=== PATIENT | female | born 1990 | race Caucasian/White ===

== ENCOUNTER 2023-07-07 12:52 | Emergency (ER) | payer OTHER, SELFPAY ==
[2023-07-07 12:56] VITALS: BP 99/68; PULSE 93; RESP 18; TEMP 37; O2SAT 98; BMI 26.5
--- NOTE | 2023-07-07 13:01 | ED_ITS ---
HPI - Extremity Injury (Upper) General Chief Complaint: Extremity Injury, Upper Stated Complaint: UPPER EXTREMITY PAIN LEFT HAND Time Seen by Provider: 07/07/23 12:57 Source: patient Mode of arrival: walk-in Limitations: no limitations History of Present Illness HPI narrative: 32-year-old female presents for pain to her left middle finger. A few days ago she accidentally avulsed her fake nail. She was chasing her son and the fingernail got caught on a wall and it got ripped off. It also pulled off the distal tip of the nail. She was worried about an infection. She he has had no drainage. She is right-handed. Related Data Previous Rx's Medication Instructions Recorded cephalexin 500 mg capsule 500 mg PO BID 7 days #14 caps 07/07/23 Allergies Allergy/AdvReac Type Severity Reaction Status Date / Time No Known Drug Allergies Allergy Verified 07/07/23 12:56 Review of Systems ROS Narrative A ten point review of systems is negative except as noted above. PFSH PFSH Social History Smoking status: Never smoker Exam Narrative Exam Narrative: Nurses note and vital signs reviewed and patient is not hypoxic. General: The patient appears well and in no apparent distress. Patient is resting comfortably on cart. Skin: Warm, dry, no pallor noted. There is no rash noted. Head: Normocephalic, atraumatic Ears, Nose, Mouth, and Throat: oral mucosa is moist. Nares patent. Cardiovascular: Regular Rate and Rhythm Respiratory: Patient is in no distress, no accessory muscle use Back: non-tender GI: soft and nontender Musculoskeletal: she does not have a false nail on her left 3rd finger, the other fingers do. Distal aspect of her [place] nail is also avulsed exposing some nailbed. There is no bleeding or erythema or drainage. Neurological: A&O, normal speech Psychiatric: Cooperative Constitutional Vital Signs, click to edit/add: Last Vital Signs Temp 98.6 F 07/07/23 12:56 Pulse 93 H 07/07/23 12:56 Resp 18 07/07/23 12:56 BP 99/68 07/07/23 12:56 Pulse Ox 98 07/07/23 12:56 Course Vital Signs Vital signs: Vital Signs Temperature 98.6 F 07/07/23 12:56 Pulse Rate 93 H 07/07/23 12:56 Respiratory Rate 18 07/07/23 12:56 Blood Pressure 99/68 07/07/23 12:56 Pulse Oximetry 98 07/07/23 12:56 Temperature 98.6 F 07/07/23 12:56 Pulse Rate 93 H 07/07/23 12:56 Respiratory Rate 18 07/07/23 12:56 Blood Pressure 99/68 07/07/23 12:56 Pulse Oximetry 98 07/07/23 12:56 MDM - Extremity Injury (Upper) MDM Narrative Medical decision making narrative: she's placed on a short course of Keflex. Tetanus is already up-to-date. Treatment diagnosis and follow-up were discussed with the patient. Differential Diagnosis Differential diagnosis: Likely other (nail avulsion, infection) Discharge Plan Discharge Chief Complaint: Extremity Injury, Upper Clinical Impression: Avulsion of nail Patient Disposition: Home, Self-Care Time of Disposition Decision: 13:00 Condition: Good Mode of Transportation: Private Vehicle Prescriptions / Home Meds: New cephalexin 500 mg capsule 500 mg PO BID 7 Days Qty: 14 0RF Instructions: Acute Wounds (ED) Stand Alone Forms: Portal Instructions Referrals: WILLIAM VIGIL [Primary Care Provider] - 1 week
== END 2023-07-07 13:08 | disposition home or self-care (01) ==
PROVIDERS: Emergency Provider Emergency Medicine; PCP Family Medicine
DX: S61.303A Unspecified open wound of left middle finger with damage to nail, initial encounter (principal); W22.01XA Walked into wall, initial encounter
CPT/HCPCS: 99283

== ENCOUNTER 2023-08-14 19:15 | Emergency (ER) | payer OTHER, SELFPAY ==
--- OUTSIDE RECORDS SUMMARY | 2023-08-14 19:21 | XMS_ITS | CCD ---
Author Name Unknown Address [address] [place] [address] Organization [facility] Care Team Providers Care Cutting Machine Operator Helper Name Role Phone Unavailable Primary Care Provider BORA Kothari Referring Unavailable Read, Jamil Attending Unavailable Read, Jamil Admitting Unavailable HOUSE, WILLIAM Akhtar Primary Care Unavailable SHARON, DR WILLIAM Loyditting Unavailable SHARON, DR THOMAS Attending Unavailable SHARON, DR THOMAS Primary Care Unavailable HOUSE, DR THOMAS Primary Care Unavailable PAY ., DR YOUNG Admitting Unavailable PAY ., DR YOUNG Attending Unavailable [place], DR PHU Capellan Consulting Unavailable PAY ., DR YOUNG Consulting Unavailable SHARON, DR THOMAS Primary Care Unavailable ALMA ., KEVIN Admitting Unavailable ALMA ., KEVIN Attending Unavailable ALMA ., KEVIN Consulting Unavailable HOUSE, DR THOMAS Primary Care Unavailable DIAB ., TRINIDAD Admitting Unavailable DIAB ., TRINIDAD Attending Unavailable DIAB ., TRINIDAD Consulting Unavailable HOUSE, DR THOMAS Admitting Unavailable SHARON, DR THOMAS Attending Unavailable SHARON, DR THOMAS Primary Care Unavailable SHARON, DR THOMAS Consulting Unavailable PETITTCINDY Gomez Attending Unavailable Medications Current Medications Medication Drug Class(es) Dates Sig (Normalized) Sig (Original) permethrin 50 mg/ml topical cream (1 source) Pyrethroid Start: 03-12-2013 permethrin (ELIMITE) 5 % cream Apply topically as directed Apply cream to body from neck down, include soles of feet. Leave 8-12 hours and then shower off. May repeat in 10-14 days if needed. 1 Tube 1 03/12/2013 Active predniSONE 20 mg oral tablet (1 source) Start: 03-12-2013 predniSONE (DELTASONE) 20 MG tablet Take one tablet three times daily with food for five days 15 tablet 0 03/12/2013 Active Problems Active Problems Problem Classification Problem Date Documented Da te Episodic/Chronic Acute and chronic tonsillitis (1 source) Acute tonsillitis, unspecified; Translations: [ACUTE TONSILLITIS UNSPECIFIED] Onset: 11-21-2022 Episodic Other upper respiratory infections (6 sources) Acute laryngitis; Translations: [Acute pharyngitis, unspecified] Onset: 05-02-2022 Episodic Screening and history of mental health and substance abuse codes (1 source) Personal history of nicotine dependence; Translations: [PERSONAL HISTORY OF NICOTINE DEPEND] Onset: 10-18-2022 Episodic Unclassified (2 sources) new hire physical; Translations: [new hire physical] Onset: 09-05-2022 Unclassified (3 sources) COUGH, UNSPECIFIED; Translations: [COUGH, UNSPECIFIED] Onset: 05-02-2022 Unclassified (1 source) PERSONAL HISTORY OF COVID-19; Translations: [PERSONAL HISTORY OF COVID-19] Onset: 05-02-2022 Past or Other Problems Problem Classification Problem Date Documented Da te Episodic/Chronic Unclassified (1 source) COUGH, UNSPECIFIED; Translations: [COUGH, UNSPECIFIED] Onset: 11-20-2022 Results Test Name Value Interpretation Reference Range Facil ity GROUP A STREP CULTUREon 10-24 S. pyogenes Ag Ql (Unsp spec) Culture Observations: NEGATIVE FOR GROUP A STREPTOCOCCUS. Normal [facility] Comment on above: Performed By: #### G RASTCX, SSCRN #### [facility] [address] [address] [address] Luca Stanton STREPT SCREENon 11-20-2022 STREP SCREEN A Negative Normal NEGATIVE [facility] Comment on above: Performed By: #### G RASTCX, SSCRN #### [facility] [address] [address] [address] Luca Stanton GROUP A STREP CULTUREon 09-26 S. pyogenes Ag Ql (Unsp spec) Culture Observations: NEGATIVE FOR GROUP A STREPTOCOCCUS. Normal [facility] Comment on above: Performed By: #### S SCRN, GRASTCX #### [facility] [address] [address] [address] Luca Stanton STREPT SCREENon 10-16-2022 STREP SCREEN A Negative Normal NEGATIVE [facility] Comment on above: Performed By: #### S SCRN, GRASTCX #### [facility] [address] [place], [place] [address] Dr. Luca Stanton Consent Formson 09-24-2022 Consent Forms [id number] 0OTGTIFF [facility] Consent Forms [id number]. 00OTGTIFF [facility] T-Spoton 09-08-2022 T-Spot. TB Test Normal [facility] Comment on above: Result Comment: [facility] [employer] [address] [place] [address] (NOTE) T-SPOT.TB Test Results --------- T-SPOT TB Negative Normal Value: Negative A negative test result does not exclude the possibility of exposure to or infection with Mycobacterium tuberculosis (M tuberculosis). Patients with recent exposure to TB infected individuals exhibiting a negative T-SPOT.TB result should be considered for retesting within 6 weeks or if other relevant clinical symptoms indicate. Results from T-SPOT.TB testing must be used in conjunction with each individual's epidemiological history, current medical status, and results of other diagnostic evaluations. The T-SPOT.TB test is qualitative and results are reported as positive, borderline or negative, given that the test controls perform as expected. In line with the Centers for Disease Control and Prevention's 2010 recommendation to report quantitative measurements alongside the qualitative result, the laboratory provides spot counts for information purposes only. The T-SPOT.TB test should be interpreted as a quantitative test. Panel A Spot Count (Corrected for Negative Control) 0 Panel B Spot Count (Corrected for Negative Control) 3 Negative Control Passed Positive Control Passed Performed By: #### V ZI, TSPOT #### [facility] [address] [place] [id number] Marketing Operations Coordinator: Christiano Ospina MD VZ Immunityon 09-06-2022 VZ Immunity 2.21 Normal >1.09 [facility] Comment on above: Result Comment: Interpretation: IMMUNE Reference Range: <0.91 Not Immune 0.91-1.09 Equivocal >1.09 Immune Performed By: #### V ZI, TSPOT #### [facility] [address] [place], [place] [id number] Marketing Operations Coordinator: Christiano Ospina MD ED Clinical Summaryon 2022 ED Clinical Summary [facility] ? Urgent Care [address] [place] [id number] Clinical Summary PERSON INFORMATION Name: LUI CARCAMO Age: 31 Years Sex: FEMALE : 1990 MRN: Acct#: Visit Reason: Medical screening exam; OTTERBEIN PHYSICAL Arrival: 09/02/2022 11:14:45 Discharge: 09/02/2022 12:31:00 LOS: 000 01:17 Check In: 09/02/2022 11:14:45 Checkout: 09/02/2022 12:31:00 Address: [address] [place] [address] PCP: WILLIAM VIGIL PROVIDER INFORMATION Provider Role Assigned Unassigned Cindy Leon TIRE MOUNTER Nurse 09/02/2022 11:21:29 Jamil Read PA-C ED PA 09/02/2022 11:28:39 VITALS INFORMATION Vital Sign Triage Latest Temperature Tympanic Temperature Temporal Artery Pulse Rate O2 Sat 98 % 98 % Respiratory Rate Blood Pressure /68 mmHg /68 mmHg MEDICAL INFORMATION Medications Given: Allergy Information: No known allergies PHYSICIAN DOCUMENTATION DISCHARGE INFORMATION: Discharge Disposition: Home Discharge Location: Home PATIENT EDUCATION INFORMATION Instructions: Follow-Up: DIAGNOSIS: 1:Encounter for fitness for duty examination Patient Understands: Comment: Normal [facility] ED Patient Summaryon 023 ED Patient Summary [facility] ? Urgent Care [address] [place] [id number] PATIENT DISCHARGE INSTRUCTIONS Patient Information Name: LUI CARCAMO Age: 31 Years Date of : 1990 Reason For Visit: Medical screening exam; OTTERBEIN PHYSICAL Arrival Time: 09/02/2022 11:14:45 Primary Care Physician: WILLIAM VIGIL Attending Physician: Jamil Read PA-C Comment: Patient Education Medication Information: The exam and treatment you received today in the [facility] Emergency Department were for an urgent problem and are not intended as complete care. It is important for you to follow up with a doctor, nurse practitioner, or physician?s medical services assistant for ongoing care. If your symptoms become worse or you do not improve as expected and you are unable to reach your usual health care provider, you should return to the Emergency Department, we are available 24 hours a day. For those patients who have received Radiology results, the interpretation of your X-ray as given to you by our Emergency Department physician is only a preliminary report. The Radiologist will review your films and if there is a change in the diagnosis you will be notified by phone. Please make sure you have provided a working phone number so we can reach you if necessary. In the event that you had a lab culture while you were a patient in the Emergency Department, you will be notified by phone if there is a need to change your antibiotic. Please make sure you have provided a working phone number so we can reach you if necessary. [facility] Emergency Department has provided you with a complete list of medications post discharge. Please inform your manager primary care/provider of your visit and for further instruction on these medications. Any specific questions regarding your chronic medications and dosages should be discussed with your primary care physician(s) and/or pharmacist. Medications to Continue That Have Not Changed Other Medications benzoyl peroxide-clindamycin topical (benzoyl peroxide-clindamycin 5%-1% topical gel) APPLY TOPICALLY TO THE FACE ONCE A DAY FOR 30 DAYS.. spironolactone (spironolactone 50 mg oral tablet) 1 tab(s) Oral every day. TAKE 3 TABLETS BY MOUTH ONCE DAILY. sulfacetamide sodium topical (sulfacetamide sodium 10% topical lotion) APPLY SMALL AMOUNT TOPICALLY TO FACE IN THE MORNING FOR 30 DAYS.. Visit Information Visit Diagnosis: Diagnoses This Visit Encounter for fitness for duty examination (Z02.89) Medical screening exam ([id number]) If you received any narcotics, sedation, or any other medication that causes drowsiness for the next 24 hours, unless otherwise directed: ? Do not drive a car. ? Do not operate machinery such as power tools, lawn mowers, drills, sewing machines, or stoves ? Avoid alcoholic beverages and drugs for allergies, nerves, or sleep ? Do not make important personal or business decisions or sign any legal documents Reason for Visit: Gale rich physical Allergies: Substance Reaction Symptoms Type Comments No known allergies Drug Vital Signs: Vitals and Measurements this Visit (last charted value for your 09/02/2022 visit) Vital Signs This Visit Peripheral Pulse Rate: 85 bpm Respiratory Rate: 16 br/min Systolic Blood Pressure: 98 mmHg Diastolic Blood Pressure: 68 mmHg SpO2: 98 % Oxygen Therapy: Room air Blood Pressure Method: Manual Measurements This Visit Height/Length Measured: 161.92 cm Weight Measured: 69.13 kg Body Mass Index: 26.37 kg/m2 BSA Measured: 1.76 m2 Problems List: Problem Onset Comments None Major Tests and Procedures: The following procedures and tests were performed during your ED visit. Laboratory Radiology Cardiology Viruses or Bacteria What?s got you sick? Antibiotics only treat bacterial infections. Viral illnesses cannot be treated with antibiotics. When an antibiotic is not prescribed, ask your healthcare professional for tips on how to relieve symptoms and feel better. Usual Cause Illness Viruses Bacteria Antibiotic Needed Cold/Runny Nose NO Bronchitis/Chest Cold (in otherwise healthy children and adults) NO Whooping Cough Yes Flu NO Strep Throat Yes Sore Throat (except strep) NO Fluid in the middle ear (otitis media with effusion) NO Urinary Tract Infection Yes Antibiotics Aren?t Always the Answer www.cdc.gov/getsmart GET SMART Know When Antibiotics Work U.S. Department of Health and Human Services Centers for Disease Control and Prevention April [address] [facility] [place] 023 Urgent Care Record [facility] ? Urgent Care [address] [place] [address] PATIENT DISCHARGE INSTRUCTIONS Patient Information Name: LUI CARCAMO Age: 31 Years Date of : 1990 Reason For Visit: Medical screening exam; GALE PHYSICAL Arrival Time: 09/02/2022 11:14:45 Primary Care Physician: WILLIAM VIGIL Attending Physician: Jamil Read PA-C Comment: Visit Diagnosis: Diagnoses This Visit Encounter for fitness for duty examination (Z02.89) Medical screening exam ([id number]) If you received any narcotics, sedation, or any other medication that causes drowsiness for the next 24 hours, unless otherwise directed: ? Do not drive a car. ? Do not operate machinery such as power tools, lawn mowers, drills, sewing machines, or stoves ? Avoid alcoholic beverages and drugs for allergies, nerves, or sleep ? Do not make important personal or business decisions or sign any legal documents Medication Information: The exam and treatment you received today in the [facility] were for an urgent problem and are not intended as complete care. It is important for you to follow up with a doctor, nurse practitioner, or physician?s medical services assistant for ongoing care. If your symptoms become worse or you do not improve as expected and you are unable to reach your usual health care provider, you should return to the Emergency Department, we are available 24 hours a day. For those patients who have received Radiology results, the interpretation of your X-ray as given to you by our Urgent Care physician is only a preliminary report. The Radiologist will review your films and if there is a change in the diagnosis you will be notified by phone. Please make sure you have provided a working phone number so we can reach you if necessary. In the event that you had a lab culture while you were a patient in the Urgent Care, you will be notified by phone if there is a need to change your antibiotic. Please make sure you have provided a working phone number so we can reach you if necessary. [facility] Care has provided you with a complete list of medications post discharge. Please inform your manager primary care/provider of your visit and for further instruction on these medications. Any specific questions regarding your chronic medications and dosages should be discussed with your primary care physician(s) and/or pharmacist. Medications to Continue That Have Not Changed Other Medications benzoyl peroxide-clindamycin topical (benzoyl peroxide-clindamycin 5%-1% topical gel) APPLY TOPICALLY TO THE FACE ONCE A DAY FOR 30 DAYS.. spironolactone (spironolactone 50 mg oral tablet) 1 tab(s) Oral every day. TAKE 3 TABLETS BY MOUTH ONCE DAILY. sulfacetamide sodium topical (sulfacetamide sodium 10% topical lotion) APPLY SMALL AMOUNT TOPICALLY TO FACE IN THE MORNING FOR 30 DAYS.. Visit Information Allergies: Substance Reaction Symptoms Type Comments No known allergies Drug Vital Signs: Vitals and Measurements this Visit (last charted value for your 09/02/2022 visit) Vital Signs This Visit Peripheral Pulse Rate: 85 bpm Respiratory Rate: 16 br/min Systolic Blood Pressure: 98 mmHg Diastolic Blood Pressure: 68 mmHg SpO2: 98 % Oxygen Therapy: Room air Blood Pressure Method: Manual Measurements This Visit Height/Length Measured: 161.92 cm Weight Measured: 69.13 kg Body Mass Index: 26.37 kg/m2 BSA Measured: 1.76 m2 Problems List: Problem Onset Comments None Patient Education Viruses or Bacteria What?s got you sick? Antibiotics only treat bacterial infections. Viral illnesses cannot be treated with antibiotics. When an antibiotic is not prescribed, ask your healthcare professional for tips on how to relieve symptoms and feel better. Usual Cause Illness Viruses Bacteria Antibiotic Needed Cold/Runny Nose NO Bronchitis/Chest Cold (in otherwise healthy children and adults) NO Whooping Cough Yes Flu NO Strep Throat Yes Sore Throat (except strep) NO Fluid in the middle ear (otitis media with effusion) NO Urinary Tract Infection Yes Antibiotics Aren?t Always the Answer www.cdc.gov/getsmart GET SMART Know When Antibiotics Work U.S. Department of Health and Human Services Centers for Disease Control and Prevention April 2014 [facility] XR CHEST 2 Von 04-30-2022 XR CHEST 2 V EXAMINATION: XR CHES T 2 V HISTORY: SHORTNESS OF BREATH COMPARISON: No relevant comparison available. TECHNIQUE: FINDINGS: LUNGS: No significant pulmonary parenchymal abnormalities. VASCULATURE: No increased pulmonary vasculature. PLEURA: No pneumothorax, effusion, or pleural thickening. CARDIAC: No cardiomegaly or cardiac silhouette abnormality. MEDIASTINUM: No visible mass or adenopathy. BONES: No fracture or visible bone lesion. OTHER: Negative. IMPRESSION: No acute disease. Electronically authenticated by: PHU LOYD Date: 2022-04-30 10:41 Normal [facility] CBC AUTO DIFFon 12-04-2021 BASO # 0.0 103/ul Normal 0.0-0.1 [facility] Comment on above: Performed By: #### C BC #### [facility] [address] [place] [address] Dr. Luca Stanton Basophils/100 WBC (Bld) 0.4 % Normal 0.2-2.0 [facility] Comment on above: Performed By: #### C BC #### [facility] [address] [place] [address] Dr. Luca Stanton EO # 0.1 103/ul Normal 0.0-0.7 [facility] Comment on above: Performed By: #### C BC #### [facility] [address] [place] [address] Dr. Luca Stanton Eosinophils/100 WBC (Bld) 1.7 % Normal 0.9-7.0 [facility] Comment on above: Performed By: #### C BC #### [facility] [address] [place] [address] Dr. Luca Stanton Erythrocyte distribution width (RBC) [Ratio] 13.1 % Normal 11.0-15.0 [facility] Comment on above: Performed By: #### C BC #### [facility] [address] [place] [address] Dr. Luca Stanton Hematocrit (Bld) [Volume fraction] 38.5 % Normal 36.0-48.0 [facility] Comment on above: Performed By: #### C BC #### [facility] [address] [place] [address] Dr. Luca Stanton Hemoglobin (Bld) [Mass/Vol] 12.5 g/dL Normal 12.0-16.0 [facility] Comment on above: Performed By: #### C BC #### [facility] [address] [place] [address] Dr. Luca Stanton IG # 0.02 10e3/ul Normal 0.00-0.03 [facility] Comment on above: Performed By: #### C BC #### [facility] [address] [place] [address] Dr. Luca Stanton IG % 0.3 % Normal 0.0-0.5 [facility] Comment on above: Performed By: #### C BC #### [facility] [address] [place] [address] Dr. Luca Stanton LYMPH # 2.4 103/ul Normal 1.2-3.8 [facility] Comment on above: Performed By: #### C BC #### [facility] [address] [place] [address] Dr. Luca Stanton Lymphocytes/100 WBC (Bld) 31.3 % Normal 20.5-60.0 [facility] Comment on above: Performed By: #### C BC #### [facility] [address] [place] [address] Dr. Luca Stanton MANUAL DIFF REQ NO Normal [facility] Comment on above: Performed By: #### C BC #### [facility] [address] [place] [address] Dr. Luca Stanton MCH (RBC) [Entitic mass] 28.6 pg Normal 26.7-34.0 [facility] Comment on above: Performed By: #### C BC #### [facility] [address] [place] [address] Dr. Luca Stanton MCHC (RBC) [Mass/Vol] 32.5 g/dL Normal 29.9-35.2 [facility] Comment on above: Performed By: #### C BC #### [facility] [address] [place] [address] Dr. Luca Stanton MCV (RBC) [Entitic vol] 88.1 fL Normal 81.0-99.0 [facility] Comment on above: Performed By: #### C BC #### [facility] [address] [place] [address] Dr. Luca Stanton MONO # 0.4 103/ul Normal 0.3-0.8 [facility] Comment on above: Performed By: #### C BC #### [facility] [address] [place] [address] Dr. Luca Stanton Monocytes/100 WBC (Bld) 5.7 % Normal 1.7-12.0 [facility] Comment on above: Performed By: #### C BC #### [facility] [address] [place] [address] Dr. Luca Stanton NEUT # 4.7 103/ul Normal 1.4-6.5 [facility] Comment on above: Performed By: #### C BC #### [facility] [address] [place] [address] Dr. Luca Stanton Neutrophils/100 WBC (Bld) 60.6 % Normal 43.0-75.0 [facility] Comment on above: Performed By: #### C BC #### [facility] [address] [place] [address] Dr. Luca Stanton Platelet mean volume (Bld) [Entitic vol] 11.0 fL Normal 9.5-13.5 [facility] Comment on above: Performed By: #### C BC #### [facility] [address] [place] [address] Dr. Luca Stanton PLT 248 103/ul Normal 150-450 [facility] Comment on above: Performed By: #### C BC #### [facility] [address] [place] [address] Dr. Luca Stanton RBC 4.37 106/ul Normal 4.20-5.40 [facility] Comment on above: Performed By: #### C BC #### [facility] [address] [place] [address] Dr. Luca Stanton WBC 7.7 103/ul Normal 4.0-11.0 [facility] Comment on above: Performed By: #### C BC #### [facility] [address] [place] [address] Dr. Luca Stanton PROF 14(COMP METB)on 022 Albumin [Mass/Vol] 4.0 g/dL Normal 3.4-5.0 [facility] Comment on above: Performed By: #### T SH, CMP, T4 #### [facility] [address] [place] [address] Dr. Luca Stanton Albumin/Globulin [Mass ratio] 1.3 {ratio} Normal [facility] Comment on above: Performed By: #### T SH, CMP, T4 #### [facility] [address] [place] [address] Dr. Luca Stanton ALP [Catalytic activity/Vol] 57 U/L Normal 46-116 [facility] Comment on above: Performed By: #### T SH, CMP, T4 #### [facility] [address] [place] [address] Dr. Luca Stanton ALT [Catalytic activity/Vol] 17 U/L Normal 14-59 [facility] Comment on above: Performed By: #### T FARTUN CMP, T4 #### [facility] [address] [place] [address] Dr. Luca Stanton Anion gap [Moles/Vol] 11.8 mmol/L Normal [facility] Comment on above: Performed By: #### T FARTUN CMP, T4 #### [facility] [address] [place] [address] Dr. Luca Stanton AST [Catalytic activity/Vol] 10 U/L Critically low 15-37 [facility] Comment on above: Performed By: #### T FARTUN CMP, T4 #### [facility] [address] [place] [address] Dr. Luca Stanton Bilirubin [Mass/Vol] 0.7 mg/dL Normal 0.2-1.3 [facility] Comment on above: Performed By: #### T FARTUN CMP, T4 #### [facility] [address] [place] [address] Dr. Luca Stanton Calcium [Mass/Vol] 8.5 mg/dL Normal 8.5-10.1 [facility] Comment on above: Performed By: #### T FARTUN CMP, T4 #### [facility] [address] [place] [address] Dr. Luca Stanton Chloride [Moles/Vol] 104 mmol/L Normal 98-107 [facility] Comment on above: Performed By: #### T FARTUN CMP, T4 #### [facility] [address] [place] [address] Dr. Luca Stanton CO2 [Moles/Vol] 29.1 mmol/L Normal 22.0-30.0 [facility] Comment on above: Performed By: #### T FARTUN CMP, T4 #### [facility] [address] [place] [address] Dr. Luca Stanton Creatinine [Mass/Vol] 0.77 mg/dL Normal 0.52-1.04 [facility] Comment on above: Performed By: #### T FARTUN CMP, T4 #### [facility] [address] [address] [address] Luca Stanton EGFR-AF [place]ER >60 Normal >=60 [facility] Comment on above: Performed By: #### T FARTUN CMP, T4 #### [facility] [address] [address] [address] Luca Stanton EGFR-NON AF [place] >60 Normal >=60 [facility] Comment on above: Performed By: #### T FARTUN CMP, T4 #### [facility] [address] [address] [address] Luca Stanton Globulin (S) [Mass/Vol] 3.1 g/dL Normal [facility] Comment on above: Performed By: #### T FARTUN CMP, T4 #### [facility] [address] [address] [address] Luca Stanton Glucose [Mass/Vol] 96 mg/dL Normal 74-106 [facility] Comment on above: Performed By: #### T FARTUN CMP, T4 #### [facility] [address] [address] [address] Luca Stanton Potassium [Moles/Vol] 3.9 mmol/L Normal 3.4-5.0 [facility] Comment on above: Performed By: #### T FARTUN CMP, T4 #### [facility] [address] [address] [address] Luca Stanton Protein [Mass/Vol] 7.1 g/dL Normal 6.1-8.2 [facility] Comment on above: Performed By: #### T FARTUN CMP, T4 #### [facility] [address] [address] [address] Luca Stanton Sodium [Moles/Vol] 141 mmol/L Normal 137-145 [facility] Comment on above: Performed By: #### T FARTUN CMP, T4 #### [facility] [address] [address] [address] Luca Stanton Urea nitrogen [Mass/Vol] 9.0 mg/dL Normal 7.0-18.0 [facility] Comment on above: Performed By: #### T FARTUN, CMP, T4 #### [facility] [address] [address] [address] Luca Stanton Urea nitrogen/Creatinine [Mass ratio] 11.7 mg/mg Normal [facility] Comment on above: Performed By: #### T SH, CMP, T4 #### [facility] [address] [address] [address] Luca Stanton T4on 12-04-2021 T4 [Mass/Vol] 6.60 ug/dL Normal 5.53-11.00 [facility] Comment on above: Performed By: #### T SH, CMP, T4 #### [facility] [address] [address] [address] Luca Stanton TSHon 12-04-2021 TSH 1.653 uIU/mL Normal 0.470-4.680 [facility] Comment on above: Performed By: #### T SH, CMP, T4 #### [facility] [address] [address] [address] Luca Stanton TSH RANGE SEE BELOW Normal [facility] Comment on above: Result Comment: <0.3 4 UIU/ml HYPERTHYROID 0.34-5.60 UIU/ml EUTHYROID >5.60 UIU/ml HYPOTHYROID Performed By: #### T SH, CMP, T4 #### [facility] [address] [address] [address] Luca Stanton Encounters Encounter Date Encounter Type Care Provider Facility Start: 07-24-2023 End: 07-24-2023 ambulatory CINDY FULLER Not Available Start: 11-20-2022 End: 11-20-[address] WILLIAM VIGIL Facility:[facility] Start: 10-16-2022 End: 10-16-[address] WILLIAM VIGIL Facility:[facility] Start: 09-05-2022 End: 09-06-2022 ambulatory BORA LUTHER [facility] Start: 09-05-2022 End: 09-05-2022 Subsequent hospital visit by physician [facility] Start: 09-02-2022 End: 09-02-2022 ambulatory Jamil Fairchildtiz Facility:[facility] Start: 04-30-2022 End: 04-30-[address] WILLIAM VIGIL Facility:[facility] Start: 12-18-[address] WILLIAM VIGIL Facili ty:[facility] Start: 12-07-2021 Encounter for genera l adult medical examination without abnormal findings DR WILLIAM VIGIL [facility] Start: 12-04-2021 End: 12-05-[address] WILLIAM VIGIL Facility:[facility] Start: 12-04-2021 End: 12-05-2021 Encounter for general adult medical examination without abnormal findings DR WILLIAM VIGIL Facility:[facility] Plan of Treatment Date Care Activity Detail Author Start: 03-25-2022 Influenza vaccination Flu vaccine (# 1) [facility] [employer] Start: 11-18-2010 DTaP/Tdap/Td vaccine (1 - Tdap) DTaP/Tdap/Td vaccine (1 - Tdap) [facility] Start: 05-21-1992 COVID-19 Vaccine (#1) COVID-19 Vacci ne (#1) [facility] End: 09-05-2022 Tb antigen response gamma interferon t-cell susp [employer]: Comment on above: Once for 1 Occurrenc es starting 09/05/2022 until 09/05/2022 End: 09-05-2022 Varicella Zoster Antibody, IgG [employer]: Comment on above: Once for 1 Occurrenc es starting 09/05/2022 until 09/05/2022 Payers Date Payer Category Payer Unknown [id number] 1991 Unknown [id number] .[id number] 1991 Unknown [id number] 1991 Unknown [id number] .[id number] 1991 Unknown [id number] .[id number] 1991 Unknown [id number] 1959 Unknown [id number] Social History Date Type Detail Facility Start: 03-12-2013 [facility] [employer]: Start: 03-12-2013 Alcohol intake Current drinke r of alcohol (finding) [facility] [employer]: Start: 03-12-2013 Alcohol Comment I drink occasional ly. [facility] [employer]: Start: 1990 Sex Assigned At Not on file B ON [employer]: History and physical note 09-03-2022 Note Date & Type Note Facility 09-03-2022 Note [id number] F [facility] Clinical Note 09-02-2022 Note Date & Type Note Facility 09-02-2022 Note Patient Education Materials Foll ows: [facility] Summary Purpose Family History No Family History Records FoundNo Family History Records FoundNo Family History Records FoundNo Family History Records Found Advance Directives No Advanced Directives Records FoundNo Advanced Directives Records FoundNo Advanced Directives Records FoundNo Advanced Directives Records Found Additional Source Comments INFORMATION SOURCE (unrecogn ized section and content) DATE CREATED AUTHOR 09/08/2022 [facility] DATE CREATED AUTHOR AUTHOR'S ORGANIZ ATION 09/24/2022 [facility] DATE CREATED AUTHOR AUTHOR'S ORGANIZ ATION 11/24/[address] [facility] DATE CREATED AUTHOR AUTHOR'S ORGANIZ ATION 07/26/2023 [facility] [employer] [facility] FOR RECORDS PERTAINING TO PATIENTS WHO ARE OR HAVE BEEN ENROLLED IN A CHEMICAL DEPENDENCY/SUBSTANCEABUSE PROGRAM, SOME INFORMATION MAY BE OMITTED. This clinical summary was aggregated from multiple sources. Caution should be exercised in using it in the provision of clinical care. This summary normalizes information from multiple sources, and as a consequence, information in this document may materially change the coding, format and clinical context of patient data. In addition, data may be omitted in some cases. CLINICAL DECISIONS SHOULD BE BASED ON THE PRIMARY CLINICAL RECORDS. [facility] [employer] [facility]. provides no warranty or guarantee of the accuracy or completeness of information in this document.
[2023-08-14 19:37] VITALS: BP 102/76; PULSE 88; RESP 18; TEMP 36.8; O2SAT 97; BMI 28.3
--- NOTE | 2023-08-14 19:51 | ED.URI1 ---
HPI - URI/Sore Throat General Chief Complaint: Upper Respiratory Infection Stated Complaint: URTI Time Seen by Provider: 08/14/23 19:15 Source: patient Limitations: no limitations History of Present Illness HPI Narrative: Patient with 3-4 days of nasal congestion, runny nose, sore throat and sinus fullness. Daughter had similar symptoms earlier. No fever or chills. No vomiting or diarrhea. Minimal dry cough that is no worse at night. No chest pain or shortness of breath. Related Data Home Medications Medication Instructions Recorded Confirmed clindamycin 1 %-benzoyl peroxide 5 1 applic topical DAILY 08/14/23 08/14/23 % topical gel spironolactone 50 mg tablet 50 mg PO DAILY 08/14/23 08/14/23 Previous Rx's Medication Instructions Recorded cephalexin 500 mg capsule 500 mg PO BID 7 days #14 caps 07/07/23 cetirizine 5 mg-pseudoephedrine ER 1 tab PO Q12H PRN sinus symptoms 08/14/23 120 mg tablet,extended #14 tabs release,12hr (Zyrtec-D) Allergies Allergy/AdvReac Type Severity Reaction Status Date / Time No Known Drug Allergies Allergy Verified 08/14/23 19:36 PFSH PFSH Social History Smoking status: Former smoker Exam Narrative Exam Narrative: Nurses notes and vital signs reviewed and patient is not hypoxic. afebrile General: Well-appearing and in no apparent distress. Skin: Warm, dry, no pallor noted. No rash. Head: Normocephalic, atraumatic. No frontal sinus tenderness. Mild right maxillary sinus tenderness Neck: Supple, non-tender. No cervical lymphadenopathy Eye: Pupils are equal, round and EOMI. No scleral icterus. Ears, Nose, Mouth, and Throat: TM are clear, mild posterior oropharynx erythema without palatal petechiae or exudate. No pharyngeal or tonsillar swelling. Mild nasal mucosal hypertrophy, uvula is mid-line. Oral mucosa is moist Cardiovascular: Regular Rate and Rhythm without murmur, gallop or rub. Respiratory: No accessory muscle use or respiratory distress. Lungs are clear to auscultation, no wheezing, rales or rhonchi Neurological: A&O x4. No cranial nerve dysfunction observed. No truncal ataxia. Moves all extremities. Sensation intact. Psychiatric: Cooperative and interactive. Normal mood and affect. Constitutional Vital Signs, click to edit/add: Last Vital Signs Temp 98.3 F 08/14/23 19:37 Pulse 88 08/14/23 19:37 Resp 18 08/14/23 19:37 BP 102/76 08/14/23 19:37 Pulse Ox 97 08/14/23 19:37 O2 Del Method Room Air 08/14/23 19:37 Course Vital Signs Vital signs: Vital Signs Temperature 98.3 F 08/14/23 19:37 Pulse Rate 88 08/14/23 19:37 Respiratory Rate 18 08/14/23 19:37 Blood Pressure 102/76 08/14/23 19:37 Pulse Oximetry 97 08/14/23 19:37 Oxygen Delivery Method Room Air 08/14/23 19:37 Temperature 98.3 F 08/14/23 19:37 Pulse Rate 88 08/14/23 19:37 Respiratory Rate 18 08/14/23 19:37 Blood Pressure 102/76 08/14/23 19:37 Pulse Oximetry 97 08/14/23 19:37 Oxygen Delivery Method Room Air 08/14/23 19:37 MDM - URI/Sore Throat MDM Narrative Medical decision making narrative: Patient without findings consistent with acute strep pharyngitis, otitis media or other bacterial etiology of her symptoms. We discussed her diagnosis and she was discharged home with a prescription sent electronically for Zyrtec-D to be taken every 12 hours as needed for symptoms. Patient advised to rest, stay at home, practice social distancing, take Motrin and Tylenol for pain and fever if not allergic, stay well hydrated with Gatorade or similar drinks if vomiting or eat as tolerated if not and take any meds as prescribed. Reviewed reasons to return including rapid increase in respiratory rate, shortness of breath, confusion, inability to keep down sips of swallowed liquids for more than 24 hours. Asked patient to encourage any ill contacts to stay home and practice similar advice. Discharge Plan Discharge Chief Complaint: Upper Respiratory Infection Clinical Impression: Upper respiratory infection Time of Disposition Decision: 19:53 Prescriptions / Home Meds: New cetirizine-pseudoephedrine [Zyrtec-D] 5-120 mg tablet extended release 12 hr 1 tab PO Q12H PRN (Reason: sinus symptoms) Qty: 14 0RF No Action cephalexin 500 mg capsule 500 mg PO BID 7 Days Qty: 14 0RF clindamycin-benzoyl peroxide 1-5 % gel 1 applic TOPICAL DAILY spironolactone 50 mg tablet 50 mg PO DAILY Instructions: Upper Respiratory Infection (ED) Stand Alone Forms: Portal Instructions Referrals: WILLIAM VIGIL [Primary Care Provider] - 1 week
== END 2023-08-14 19:58 | disposition home or self-care (01) ==
PROVIDERS: Emergency Provider Emergency Medicine; PCP Family Medicine
DX: J06.9 Acute upper respiratory infection, unspecified (principal); Z79.899 Other long term (current) drug therapy; Z87.891 Personal history of nicotine dependence
CPT/HCPCS: 99283

== ENCOUNTER 2023-08-22 08:48 | Emergency (ER) | payer OTHER, SELFPAY ==
[2023-08-22 08:52] VITALS: BP 89/61; PULSE 82; RESP 18; TEMP 36.9; O2SAT 96; BMI 26.5
--- OUTSIDE RECORDS SUMMARY | 2023-08-22 08:56 | XMS_ITS | CCD ---
Author Name Unknown Address [address] [place] [address] Organization [facility] Care Team Providers Care Yard Coupler Name Role Phone Unavailable Primary Care Provider BORA Kothari Referring Unavailable Read, Jamil Attending Unavailable Read, Jamil Admitting Unavailable HOUSE, WILLIAM Akhtar Primary Care Unavailable MORELAND, DR THOMAS Admitting Unavailable MORELAND, DR THOMAS Attending Unavailable MORELAND, DR THOMAS Primary Care Unavailable HOUSE, DR THOMAS Primary Care Unavailable PAY ., DR YOUNG Admitting Unavailable PAY ., DR YOUNG Attending Unavailable RALSTON, DR PHU Capellan Consulting Unavailable PAY ., DR YOUNG Consulting Unavailable MORELAND, DR THOMAS Primary Care Unavailable ALMA ., KEVIN Admitting Unavailable ALMA ., KEVIN Attending Unavailable ALMA ., KEVIN Consulting Unavailable HOUSE, DR THOMAS Primary Care Unavailable DIAB ., TRINIDAD Admitting Unavailable DIAB ., TRINIDAD Attending Unavailable DIAB ., TRINIDAD Consulting Unavailable HOUSE, DR THOMAS Admitting Unavailable MORELAND, DR THOMAS Attending Unavailable MORELAND, DR THOMAS Primary Care Unavailable MORELAND, DR THOMAS Consulting Unavailable PETITTCINDY Gomez Attending [...] NEGATIVE FOR GROUP A STREPTOCOCCUS. Normal The [facility] Comment on above: Performed By: #### G RASTCX, SSCRN #### [facility] [address] [address] [address] Luca Stanton STREPT SCREENon 11-20-2022 STREP SCREEN A Negative Normal NEGATIVE [facility] Comment on above: Performed By: #### G RASTCX, SSCRN #### [facility] [address] [address] [address] Luca Stanton GROUP A STREP CULTUREon 09-26 S. pyogenes Ag Ql (Unsp spec) Culture Observations: NEGATIVE FOR GROUP A STREPTOCOCCUS. Normal The [facility] Comment on above: Performed By: #### S SCRN, GRASTCX #### [facility] [address] [address] [address] Luca Stanton STREPT SCREENon 02-22-2023 STREP SCREEN A Negative Normal NEGATIVE [facility] Comment on above: Performed By: #### S SCRN, GRASTCX #### [facility] [address] [place], [place] [address] Dr. Luca Stanton Consent Formson 09-24-2022 Consent Forms [id number]#[id number] 0OTGTIFF [facility] Consent Forms [id number]#1. 00OTGTIFF [facility] T-Spoton 09-08-2022 T-Spot. TB Test Normal [facility] Comment on above: Result Comment: [facility] [employer] [address] [place] [address] (NOTE) T-SPOT.TB Test Results --------- T-SPOT TB [...] Performed By: #### V ZI, TSPOT #### [facility] [place] [address] Wild Life Manager: Christiano Ospina MD VZ Immunityon 09-06-2022 VZ Immunity 2.21 Normal >1.09 [facility] Comment on above: Result Comment: Interpretation: IMMUNE Reference Range: <0.91 Not Immune 0.91-1.09 Equivocal >1.09 Immune Performed By: #### V ZI, TSPOT #### [facility] [address] [place], [place] [id number] Wild Life Manager: Christiano Ospina MD ED Clinical Summaryon 2022 ED Clinical Summary [facility] ? Urgent Care [address] [place] [address] Clinical Summary PERSON INFORMATION Name: LUI CARCAMO Age: 31 Years Sex: FEMALE : 1990 MRN: Acct#: Visit Reason: Medical screening exam; OTTERBEIN PHYSICAL Arrival: 09/02/2022 11:14:45 Discharge: 09/02/2022 12:31:00 LOS: 000 01:17 Check In: 09/02/2022 11:14:45 Checkout: 09/02/2022 12:31:00 Address: [address] [place] [address] PCP: WILLIAM VIGIL PROVIDER INFORMATION Provider Role Assigned Unassigned Cindy Leon VOCAL TEACHER Nurse 09/02/2022 11:21:29 Jamil Read PA-C ED [...] for duty examination Patient Understands: Comment: Normal [facility] ED Patient Summaryon 023 ED Patient Summary [facility] ? Urgent Care [address] [place] [address] PATIENT DISCHARGE INSTRUCTIONS Patient Information Name: LUI CARCAMO Age: 31 Years Date of : 1990 Reason For Visit: Medical screening exam; OTTERBEIN PHYSICAL Arrival Time: 09/02/2022 11:14:45 Primary Care Physician: WILLIAM VIGIL Attending Physician: Jamil Read PA-C Comment: Patient Education Medication Information: The exam and treatment you received today in the [facility] Emergency Department were for an urgent problem and are not intended as complete care. It is important for you to follow up with a doctor, nurse practitioner, or physician?s certified first assistant for ongoing care. If your symptoms [...] so we can reach you if necessary. [facility] Emergency Department has provided you with a complete list of medications post discharge. Please inform your advertising layout worker/provider of your visit and for further instruction [...] for duty examination (Z02.89) Medical screening exam ([id number]) If you received any narcotics, sedation, or [...] Disease Control and Prevention April 2014 Normal [facility] [place] 023 Urgent Care Record [facility] ? Urgent Care [address] [place] [address] PATIENT DISCHARGE INSTRUCTIONS Patient Information Name: LUI CARCAMO Age: 31 Years Date of : 1990 Reason For Visit: Medical screening exam; GALE PHYSICAL Arrival Time: 09/02/2022 11:14:45 Primary Care Physician: WILLIAM VIGIL Attending Physician: Jamil Read PA-C Comment: Visit Diagnosis: Diagnoses This Visit Encounter for fitness for duty examination (Z02.89) Medical screening exam ([id number]) If you received any narcotics, sedation, or [...] and treatment you received today in the [facility] Urgent Care were for an urgent problem and are not intended as complete care. It is important for you to follow up with a doctor, nurse practitioner, or physician?s certified first assistant for ongoing care. If your symptoms [...] so we can reach you if necessary. [facility] Care has provided you with a complete list of medications post discharge. Please inform your advertising layout worker/provider of your visit and for further instruction [...] Disease Control and Prevention April 2014 Normal [facility] XR CHEST 2 Von 04-30-2022 XR CHEST [...] PHU LOYD Date: 2022-04-30 10:41 Normal The [facility] CBC AUTO DIFFon 12-04-2021 BASO # 0.0 103/ul Normal 0.0-0.1 [facility] Comment on above: Performed By: #### C BC #### [facility] [address] [address] [address] Luca Stanton Basophils/100 WBC (Bld) 0.4 % Normal 0.2-2.0 [facility] Comment on above: Performed By: #### C BC #### [facility] [address] [place] [address] Dr. Luca Stanton EO # 0.1 103/ul Normal 0.0-0.7 [facility] Comment on above: Performed By: #### C BC #### [facility] [address] [place] [address] Dr. Luca Stanton Eosinophils/100 WBC (Bld) 1.7 % Normal 0.9-7.0 [facility] Comment on above: Performed By: #### C BC #### [facility] [address] [place] [address] Dr. Luca Stanton Erythrocyte distribution width (RBC) [Ratio] 13.1 % Normal 11.0-15.0 [facility] Comment on above: Performed By: #### C BC #### [facility] [address] [place] [address] Dr. Luca Stanton Hematocrit (Bld) [Volume fraction] 38.5 % Normal 36.0-48.0 [facility] Comment on above: Performed By: #### C BC #### [facility] [address] [place] [address] Dr. Luca Stanton Hemoglobin (Bld) [Mass/Vol] 12.5 g/dL Normal 12.0-16.0 [facility] Comment on above: Performed By: #### C BC #### [facility] [address] [place] [address] Dr. Luca Stanton IG # 0.02 10e3/ul Normal 0.00-0.03 [facility] Comment on above: Performed By: #### C BC #### [facility] [address] [place] [address] Dr. Luca Stanton IG % 0.3 % Normal 0.0-0.5 [facility] Comment on above: Performed By: #### C BC #### [facility] [address] [place] [address] Dr. Luca Stanton LYMPH # 2.4 103/ul Normal 1.2-3.8 [facility] Comment on above: Performed By: #### C BC #### [facility] [address] [place] [address] Dr. Luca Stanton Lymphocytes/100 WBC (Bld) 31.3 % Normal 20.5-60.0 [facility] Comment on above: Performed By: #### C BC #### [facility] [address] [place] [address] Dr. Luca Stanton MANUAL DIFF REQ NO Normal The [facility] Comment on above: Performed By: #### C BC #### [facility] [address] [place] [address] Dr. Luca Stanton MCH (RBC) [Entitic mass] 28.6 pg Normal 26.7-34.0 [facility] Comment on above: Performed By: #### C BC #### [facility] [address] [place] [address] Dr. Luca Stanton MCHC (RBC) [Mass/Vol] 32.5 g/dL Normal 29.9-35.2 [facility] Comment on above: Performed By: #### C BC #### [facility] [address] [place] [address] Dr. Luca Stanton MCV (RBC) [Entitic vol] 88.1 fL Normal 81.0-99.0 [facility] Comment on above: Performed By: #### C BC #### [facility] [address] [place] [address] Dr. Luca Stanton MONO # 0.4 103/ul Normal 0.3-0.8 [facility] Comment on above: Performed By: #### C BC #### [facility] [address] [place] [address] Dr. Luca Stanton Monocytes/100 WBC (Bld) 5.7 % Normal 1.7-12.0 [facility] Comment on above: Performed By: #### C BC #### [facility] [address] [place] [address] Dr. Luca Stanton NEUT # 4.7 103/ul Normal 1.4-6.5 [facility] Comment on above: Performed By: #### C BC #### [facility] [address] [place] [address] Dr. Luca Stanton Neutrophils/100 WBC (Bld) 60.6 % Normal 43.0-75.0 [facility] Comment on above: Performed By: #### C BC #### [facility] [address] [place] [address] Dr. Luca Stanton Platelet mean volume (Bld) [Entitic vol] 11.0 fL Normal 9.5-13.5 [facility] Comment on above: Performed By: #### C BC #### [facility] [address] [place] [address] Dr. Luca Stanton PLT 248 103/ul Normal 150-450 [facility] Comment on above: Performed By: #### C BC #### [facility] [address] [place] [address] Dr. Luca Stanton RBC 4.37 106/ul Normal 4.20-5.40 [facility] Comment on above: Performed By: #### C BC #### [facility] [address] [place] [address] Dr. Luca Stanton WBC 7.7 103/ul Normal 4.0-11.0 [facility] Comment on above: Performed By: #### C BC #### [facility] [address] [place] [address] Dr. Luca Stanton PROF 14(COMP METB)on 022 Albumin [Mass/Vol] 4.0 g/dL Normal 3.4-5.0 [facility] Comment on above: Performed By: #### T SH, CMP, T4 #### [facility] [address] [place] [address] Dr. Luca Stanton Albumin/Globulin [Mass ratio] 1.3 {ratio} Normal [facility] Comment on above: Performed By: #### T SH, CMP, T4 #### [facility] [address] [place] [address] Dr. Luca Stanton ALP [Catalytic activity/Vol] 57 U/L Normal 46-116 [facility] Comment on above: Performed By: #### T SH, CMP, T4 #### [facility] [address] [place] [address] Dr. Luca Stanton ALT [Catalytic activity/Vol] 17 U/L Normal 14-59 [facility] Comment on above: Performed By: #### T FARTUN CMP, T4 #### [facility] [address] [place] [address] Dr. Luca Stanton Anion gap [Moles/Vol] 11.8 mmol/L Normal [facility] Comment on above: Performed By: #### T FARTUN CMP, T4 #### [facility] [address] [place] [address] Dr. Luca Stanton AST [Catalytic activity/Vol] 10 U/L Critically low 15-37 [facility] Comment on above: Performed By: #### T FARTUN CMP, T4 #### [facility] [address] [place] [address] Dr. Luca Stanton Bilirubin [Mass/Vol] 0.7 mg/dL Normal 0.2-1.3 [facility] Comment on above: Performed By: #### T FARTUN CMP, T4 #### [facility] [address] [place] [address] Dr. Luca Stanton Calcium [Mass/Vol] 8.5 mg/dL Normal 8.5-10.1 [facility] Comment on above: Performed By: #### T FARTUN CMP, T4 #### [facility] [address] [place] [address] Dr. Luca Stanton Chloride [Moles/Vol] 104 mmol/L Normal 98-107 [facility] Comment on above: Performed By: #### T FARTUN CMP, T4 #### [facility] [address] [place] [address] Dr. Luca Stanton CO2 [Moles/Vol] 29.1 mmol/L Normal 22.0-30.0 [facility] Comment on above: Performed By: #### T FARTUN CMP, T4 #### [facility] [address] [place] [address] Dr. Luca Stanton Creatinine [Mass/Vol] 0.77 mg/dL Normal 0.52-1.04 [facility] Comment on above: Performed By: #### T FARTUN CMP, T4 #### [facility] [address] [address] [address] Luca Stanton EGFR-AF SRI LANKAN >60 Normal >=60 [facility] Comment on above: Performed By: #### T FARTUN, CMP, T4 #### [facility] [address] [address] [address] Luca Stanton EGFR-NON AF SRI LANKAN >60 Normal >=60 [facility] Comment on above: Performed By: #### T FARTUN, CMP, T4 #### [facility] [address] [address] [address] Luca Stanton Globulin (S) [Mass/Vol] 3.1 g/dL Normal [facility] Comment on above: Performed By: #### T FARTUN CMP, T4 #### [facility] [address] [place] [address] Dr. Luca Stanton Glucose [Mass/Vol] 96 mg/dL Normal 74-106 [facility] Comment on above: Performed By: #### T FARTUN CMP, T4 #### [facility] [address] [address] [address] Luca Stanton Potassium [Moles/Vol] 3.9 mmol/L Normal 3.4-5.0 [facility] Comment on above: Performed By: #### T FARTUN CMP, T4 #### [facility] [address] [address] [address] Luca Stanton Protein [Mass/Vol] 7.1 g/dL Normal 6.1-8.2 [facility] Comment on above: Performed By: #### T FARTUN CMP, T4 #### [facility] [address] [address] [address] Luca Stanton Sodium [Moles/Vol] 141 mmol/L Normal 137-145 [facility] Comment on above: Performed By: #### T FARTUN CMP, T4 #### [facility] [address] [address] [address] Luca Stanton Urea nitrogen [Mass/Vol] 9.0 mg/dL Normal 7.0-18.0 [facility] Comment on above: Performed By: #### T SH, CMP, T4 #### [facility] [address] [address] [address] Luca Stanton Urea nitrogen/Creatinine [Mass ratio] 11.7 mg/mg Normal [facility] Comment on above: Performed By: #### T SH, CMP, T4 #### [facility] [address] [address] [address] Luca Stanton T4on 12-04-2021 T4 [Mass/Vol] 6.60 ug/dL Normal 5.53-11.00 [facility] Comment on above: Performed By: #### T SH, CMP, T4 #### [facility] [address] [address] [address] Luca Stanton TSHon 12-04-2021 TSH 1.653 uIU/mL Normal 0.470-4.680 [facility] Comment on above: Performed By: #### T SH, CMP, T4 #### [facility] [address] [address] [address] Luca Stanton TSH RANGE SEE BELOW Normal [facility] Comment on above: Result Comment: <0.3 4 UIU/ml HYPERTHYROID 0.34-5.60 UIU/ml EUTHYROID >5.60 UIU/ml HYPOTHYROID Performed By: #### T SH, CMP, T4 #### [facility] [address] [place] [address] Dr. Luca Stanton Encounters Encounter Date Encounter Type Care Provider Facility Start: 07-24-2023 End: 07-24-2023 ambulatory CINDY FULLER Not Available Start: 11-20-2022 End: 11-20-[address] WILLIAM VIGIL Facility:[facility] Start: 10-16-2022 End: 10-16-[address] WILLIAM VIGIL Facility:[facility] Start: 09-05-2022 End: 09-06-2022 ambulatory BORA LUTHER [facility] Start: 09-05-2022 End: 09-05-2022 Subsequent hospital visit by physician [facility] Start: 09-02-2022 End: 09-02-2022 ambulatory Jamil [facility] Facility:[facility] Start: 04-30-2022 End: 04-30-[address] WILLIAM VIGIL Facility:[facility] Start: 12-18-[address] WILLIAM VIGIL Facili ty:[facility] Start: 12-07-2021 Encounter for genera l adult medical examination without abnormal findings DR IWLLIAM VIGIL [facility] Start: 12-04-2021 End: 12-05-[address] WILLIAM VIGIL Facility:[facility] Start: 12-04-2021 End: 12-05-2021 Encounter for general adult medical examination without abnormal findings DR WILLIAM VIGIL Facility:[facility] Plan of Treatment Date Care Activity Detail Author Start: 03-25-2022 Influenza vaccination Flu vaccine (# 1) [facility] Start: 11-18-2010 DTaP/Tdap/Td vaccine (1 - Tdap) DTaP/Tdap/Td vaccine (1 - Tdap) [facility] Start: 05-21-1992 COVID-19 Vaccine (#1) COVID-19 Vacci ne (#1) [facility] End: 09-05-2022 Tb antigen response gamma interferon t-cell susp [facility] Phone: Comment on above: Once for 1 Occurrenc es starting 09/05/2022 until 09/05/2022 End: 09-05-2022 Varicella Zoster Antibody, IgG [facility] Phone: Comment on above: Once for 1 Occurrenc es starting 09/05/2022 until 09/05/2022 Payers Date Payer Category Payer Unknown [id number] 1990 Unknown [id number] 1990 Unknown [id number] 1990 Unknown [id number] 1990 Unknown [id number] 1990 Unknown [id number] 1958 Unknown [id number] Social History Date Type Detail Facility Start: 03-12-2013 Tobacco smoking stat [facility] Tobacco smoking consumption unknown [facility] [employer] Phone: Start: 03-12-2013 Alcohol intake Current drinke r of alcohol (finding) [facility] [employer] Phone: Start: 03-12-2013 Alcohol Comment I drink occasional ly. [facility] [employer] Phone: Start: 1990 Sex Assigned At Not on file B ON [employer] Phone: History and physical note 09-03-2022 Note Date & Type Note Facility 09-03-2022 Note [id number] F [facility] Clinical Note 09-02-2022 Note Date & Type Note Facility 09-02-2022 Note Patient Education Materials Foll ows: [facility] Summary Purpose Family History No Family History Records FoundNo Family History Records FoundNo Family History Records FoundNo Family History Records Found Advance Directives No Advanced Directives Records FoundNo Advanced Directives Records FoundNo Advanced Directives Records FoundNo Advanced Directives Records Found Additional Source Comments INFORMATION SOURCE (unrecogn ized section and content) DATE CREATED AUTHOR 09/08/2022 [facility] DATE CREATED AUTHOR AUTHOR'S ORGANIZ ATION 09/24/2022 [facility] DATE CREATED AUTHOR AUTHOR'S ORGANIZ ATION 11/24/[address] [facility] DATE CREATED AUTHOR AUTHOR'S ORGANIZ ATION 07/26/2023 [facility] FOR RECORDS PERTAINING TO PATIENTS WHO ARE [...] BE BASED ON THE PRIMARY CLINICAL RECORDS. [facility] [employer] [facility]. provides no warranty or guarantee of the accuracy or completeness of information in this document.
--- NOTE | 2023-08-22 09:03 | XR_ITS ---
The [address] [address] Patient Name: LUI CARCAMO MRN: [id number] date: 1990 Sex: F Assigned Patient Location: ER Current Patient Location: Accession/Order Number: [id number] Exam Date: 08/22/2023 09:30 Report Date: 08/22/2023 09:50 At the request of: TORSTEN DUMONT Procedure: XR chest 1V EXAM: XR chest 1V HISTORY: sob COMPARISON: None. TECHNIQUE: AP view of the chest. FINDINGS: The cardiomediastinal silhouette is normal. The lungs are clear. There is no pneumothorax. No pleural effusion is noted. The osseous structures are intact. XR/XR chest 1V IMPRESSION: No acute cardiopulmonary process. Electronically authenticated by: MONIK FERGUSON Date: 08/22/2023 09:50
--- NOTE | 2023-08-22 09:05 | ED.URI1 ---
HPI - URI/Sore Throat General Chief Complaint: Upper Respiratory Infection Stated Complaint: COUGH Time Seen by Provider: 08/22/23 09:02 Source: patient Limitations: no limitations History of Present Illness HPI Narrative: patient here with congestion in her chest. She was seen several days ago here and placed on decongestions. At no time did she have any stigmata of viral syndromes or influenza. She's not had fever shakes or chills. She does not have purulent sputum. She has no history of childhood asthma. She is not on any antibiotics. She is other hair pretty healthy.. However her upper [place] symptoms are now settled down into her chest. She said her son was ill before she was. She's not seen her primary care doctor. Related Data Home Medications Medication Instructions Recorded Confirmed clindamycin 1 %-benzoyl peroxide 5 1 applic topical DAILY 08/14/23 08/14/23 % topical gel spironolactone 50 mg tablet 50 mg PO DAILY 08/14/23 08/14/23 Previous Rx's Medication Instructions Recorded cephalexin 500 mg capsule 500 mg PO BID 7 days #14 caps 07/07/23 cetirizine 5 mg-pseudoephedrine ER 1 tab PO Q12H PRN sinus symptoms 08/14/23 120 mg tablet,extended #14 tabs release,12hr (Zyrtec-D) Allergies Allergy/AdvReac Type Severity Reaction Status Date / Time No Known Drug Allergies Allergy Verified 08/22/23 08:52 PFSH PFSH Social History Smoking status: Former smoker Exam Narrative Exam Narrative: awake alert pleasant appears no distress. Denies arthralgias neck pain joint pain. Just has the cough itself in her chest. She has no bronchospastic component to it. Is no conjunctivitis. Facial structures show no swelling. There is no stridor posturing or drooling. Lungs had scattered rhonchi but no bronchospasm. Constitutional Vital Signs, click to edit/add: Last Vital Signs Temp 98.4 F 08/22/23 08:52 Pulse 82 08/22/23 08:52 Resp 18 08/22/23 08:52 BP 89/61 08/22/23 08:52 Pulse Ox 96 08/22/23 08:52 O2 Del Method Room Air 08/22/23 08:52 Course Vital Signs Vital signs: Vital Signs Temperature 98.4 F 08/22/23 08:52 Pulse Rate 82 08/22/23 08:52 Respiratory Rate 18 08/22/23 08:52 Blood Pressure 89/61 08/22/23 08:52 Pulse Oximetry 96 08/22/23 08:52 Oxygen Delivery Method Room Air 08/22/23 08:52 Temperature 98.4 F 08/22/23 08:52 Pulse Rate 82 08/22/23 08:52 Respiratory Rate 18 08/22/23 08:52 Blood Pressure 89/61 08/22/23 08:52 Pulse Oximetry 96 08/22/23 08:52 Oxygen Delivery Method Room Air 08/22/23 08:52 MDM - URI/Sore Throat MDM Narrative Medical decision making narrative: patient is now day approximate seven or eight of an upper us for infection it's not getting better with conservative management. A chest x-ray is done and does not show any pneumonia. She has no influenza or cold symptoms, however I would recommend she do Covid test at home. Her pulse oximetry is normal and there is no distress here. Discharge Plan Discharge Chief Complaint: Upper Respiratory Infection Clinical Impression: Bronchitis Patient Disposition: Home, Self-Care Time of Disposition Decision: 09:33 Prescriptions / Home Meds: No Action cephalexin 500 mg capsule 500 mg PO BID 7 Days Qty: 14 0RF clindamycin-benzoyl peroxide 1-5 % gel 1 applic TOPICAL DAILY spironolactone 50 mg tablet 50 mg PO DAILY cetirizine-pseudoephedrine [Zyrtec-D] 5-120 mg tablet extended release 12 hr 1 tab PO Q12H PRN (Reason: sinus symptoms) Qty: 14 0RF Additional Instructions: [facility] Stand Alone Forms: Portal Instructions Referrals: WILLIAM VIGIL [Primary Care Provider] - 1 week
== END 2023-08-22 09:41 | disposition home or self-care (01) ==
PROVIDERS: Emergency Provider Emergency Medicine Emergency Medical Services; PCP Family Medicine
DX: J40 Bronchitis, not specified as acute or chronic (principal); Z87.891 Personal history of nicotine dependence
CPT/HCPCS: 71045; 99283

== ENCOUNTER 2023-10-15 17:00 | Emergency (ER) | payer OTHER, SELFPAY ==
--- OUTSIDE RECORDS SUMMARY | 2023-10-15 17:08 | XMS_ITS | CCD ---
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 Name Role Phone Unavailable Primary Care Provider BORA Kothari Referring Unavailable HOUSE, DR THOMAS Admitting Unavailable HOUSE, DR THOMAS Attending Unavailable HOUSE, DR THOMAS Primary Care Unavailable HOUSE, DR THOMAS Primary Care Unavailable PAY ., DR HANNAH Loyditting Unavailable PAY ., DR YOUNG Attending Unavailable [place], DR PHU Capellan Consulting Unavailable PAY ., DR YOUNG Consulting Unavailable HOUSE, DR THOMAS Primary Care Unavailable ALMA ., KEVIN Admitting Unavailable ALMA ., KEVIN Attending Unavailable ALMA ., KEVIN Consulting Unavailable HOUSE, DR THOMAS Primary Care Unavailable DIAB ., TRINIDAD Admitting Unavailable DIAB ., TRINIDAD Attending Unavailable DIAB ., TRINIDAD Consulting Unavailable HOUSE, DR THOMAS Admitting Unavailable HOUSE, DR THOMAS Attending Unavailable HOUSE, DR THOMAS Primary Care Unavailable HOUSE, DR THOMAS Consulting Unavailable PETITTCINDY Gomez Attending Unavailable HOUSE, GERONIMO Akhtar Primary Care Unavailable HOUSE, GERONIMO Akhtar Primary Care Unavailable Read, Jamil Admitting Unavailable Read, Jamil Attending Unavailable House , Geronimo Akhtar Primary Care Provider GERONIMO VIGIL Referring Unavailable HOUSE, GERONIMO Akhtar Primary Care Unavailable HOUSE, GERONIMO Akhtar Primary Care Unavailable LEIGH ARGUELLO Attending Unavailab le Medications Current Medications Medication Drug Class(es) Dates Sig (Normalized) Sig (Original) acyclovir 800 mg oral tablet (2 sources) Herpesvirus Nucleoside Analog DNA Polymerase Inhibitor, Herpes Simplex Virus Nucleoside Analog DNA Polymerase Inhibitor, Herpes Zoster Virus Nucleoside Analog DNA Polymerase Inhibitor Start: 09-15-2023 End: 09-20-2023 take 1 tablet by mouth in the morning acyclovir (ZOVIRAX) 800 mg tablet Indications: HSV infection Take 1 tablet (800 mg total) by mouth in the morning and 1 tablet (800 mg total) before bedtime. Do all this for 5 days. Take 800mg by mouth in the morning and 800mg by mouth at bedtime for 5 days prn outbreak.. 50 tablet 0 09/15/2023 Active permethrin 50 mg/ml topical cream (1 source) [...] five days 15 tablet 0 03/12/2013 Active 62-zdxq-mcbcgi 9-dha 31 mg iron- 1 mg-200 mg capsule (1 source) Start: 09-24-2023 take 1 capsule by mouth in the morning 45-ddif-otonja 9-dha 31 mg iron- 1 mg-200 mg capsule Indications: Patient desires Take 1 capsule by mouth in the morning. 90 capsule 3 09/24/2023 Active spironolactone 50 mg oral tablet (2 sources) Aldosterone Antagonist Start: 03-11-2023 take 3 tablets by mouth once daily spironolactone (ALDACTONE) 50 mg tablet TAKE 3 TABLETS BY MOUTH ONCE DAILY 0 03/11/2023 Active sulfacetamide sodium 100 mg/ml topical lotion (2 sources) Sulfonamide Antibacterial Start: 03-11-2023 sulfacetamide sodium, acne, 10 % suspension APPLY SMALL AMOUNT TOPICALLY TO FACE IN THE MORNING FOR 30 DAYS. 0 03/11/2023 Active Completed/Discontinued Medications Medication Drug Class(es) Dates Sig (Normalized) Sig (Original) levonorgestrel 0.666878 mg/hr intrauterine system (2 sources) Progestin, Progestin-containi ng Intrauterine Device End: 09-24-2023 levonorgestreL (LILETTA) 20.1 mcg/24 hrs (6 yrs) 52 mg intrauterine device IUD 1 each by intrauterine route once. 0 09/24/2023 Discontinued (Therapy completed) Problems Active Problems Problem Classification Problem Date Documented Da te Episodic/Chronic Acute and chronic tonsillitis (1 source) Acute tonsillitis, unspecified; Translations: [ACUTE TONSILLITIS UNSPECIFIED] Onset: 11-21-2022 Episodic Contraceptive and procreative management (2 sources) Social and personal history finding; Translations: [Encounter for procreative management, unspecified] 09-24-2023 Episodic Other skin disorders (1 source) Rash and other nonspecific skin eruption; Translations: [Rash and other nonspecific skin eruption] Onset: 10-04-2023 Episodic Other upper respiratory infections (6 sources) Acute laryngitis; Translations: [Acute pharyngitis, unspecified] Onset: 05-02-2022 Episodic Screening and history of mental health and substance abuse codes (1 source) Personal history of nicotine dependence; Translations: [PERSONAL HISTORY OF NICOTINE DEPEND] Onset: 10-18-2022 Episodic Substance-related disorders (2 sources) Smoker; Translations: [Nicotine dependence, unspecified, uncomplicated] Onset: 10-03-2021 10-03-2021 Chronic Unclassified (2 sources) new hire physical; Translations: [new hire physical] Onset: 09-05-2022 Unclassified (3 sources) COUGH, UNSPECIFIED; Translations: [COUGH, UNSPECIFIED] Onset: 05-02-2022 Unclassified (1 source) PERSONAL HISTORY OF COVID-19; Translations: [PERSONAL HISTORY OF COVID-19] Onset: 05-02-2022 Unclassified (2 sources) Rash Onset: 10-04-2023 Past or Other Problems Problem Classification Problem Date Documented Date Episodic/Chronic Diabetes or abnormal glucose tolerance complicating ; childbirth; or the puerperium (2 sources) History of gestational diabetes mellitus; Translations: [Personal history of gestational diabetes] Onset: 03-21-2020 03-21-2020 Episodic Mood disorders (2 sources) Mood disorders Onset: 06-05-2023 06-05-2023 Other female genital disorders (2 sources) History of abnormal cervical Papanicolaou smear ; Translations: [Personal history of other diseases of the female genital tract] Onset: 04-15-2018 04-15-2018 Episodic Residual codes; unclassified (2 sources) H/O: previous delivery by vacuum extraction; Translations: [Personal history of other complications of , childbirth and the puerperium] Onset: 04-30-2017 04-30-2017 Episodic Unclassified (1 source) COUGH, UNSPECIFIED; Translations: [COUGH, UNSPECIFIED] Onset: 11-20-2022 Unclassified (2 sources) Onset: 06-05-2023 06-05-2023 Viral infection (3 sources) Herpes simplex; Translations: [Herpesviral infection, unspecified] Onset: 01-13-2023 09-15-2023 Episodic Results Test Name Value Interpretation Reference Range Facility Lab - Reference Lab Resultso n 09-01-2023 Lab - Reference Lab Results [id number]#1.0 [facility] Resultson 0 08-29-2023 Lab - Toxicology Results [id number]#1 .[facility] HBS[facility] Qnt LCon 08-28-2023 Hep B Surf Ab Quant LC 20.6 mIU/mL Invalid Interpretation Code Immunity>9.9 [facility] Comment on above: Result Comment: Stat us of Immunity Anti-HBs Level Inconsistent with Immunity 0.0 - 9.9 Consistent with Immunity >9.9 Performed At: [address] [id number] Elsa Colon PhD Ph:[phone] Performed By: #### 5 [id number], [id number] #### [facility] (DEFAULT) [address] [place] [address] Measles/Mumps/Rubella Immuni ty LCon 08-28-2023 Mumps Abs, IgG LC 146.0 AU/mL Invalid Interpretation Code Immune >10.9 [facility] Comment on above: Result Comment: Nega tive <9.0 Equivocal 9.0 - 10.9 Positive >10.9 A positive result generally indicates past exposure to Mumps virus or previous vaccination. Performed At: [address] [id number] Elsa Colon PhD Ph:[phone] Performed By: #### 5 [id number], [id number] #### [facility] (DEFAULT) [address] [place] [address] Rubella Antibodies, IgG LC 2.88 index Invalid Interpretation Code Immune >0.99 [facility] Comment on above: Result Comment: Non- immune <0.90 Equivocal 0.90 - 0.99 Immune >0.99 Performed By: #### 5 [id number], [id number] #### [facility] (DEFAULT) [address] [place] [address] Rubeola Ab, IgG, EIA LC 20.4 AU/mL Invalid Interpretation Code Immune >16.4 [facility] Comment on above: Result Comment: Nega tive <13.5 Equivocal 13.5 - 16.4 Positive >16.4 Presence of antibodies to Rubeola is presumptive evidence of immunity except when acute infection is suspected. Performed By: #### 5 [id number], [id number] #### [facility] (DEFAULT) [address] [place] [address] Nicotine Metabolite, Urine L Con 08-28-2023 Cotinine LC Negative Invalid Interpretation Code Newbxi=459 [facility] Comment on above: Result Comment: Perf ormed At: [facility] [address] [facility], [place] [id number] Jacob Otoole PhD Ph:[phone] Performed By: #### 1 [id number] #### [facility] (DEFAULT) [address] [place] [id number] GROUP A STREP CULTUREon 10-24 S. pyogenes Ag Ql (Unsp spec) Culture Observations: NEGATIVE FOR GROUP A STREPTOCOCCUS. Normal [facility] Comment on above: Performed By: #### G RASTCX, SSCRN #### [facility] [address] [place] [address] Dr. Luca Stanton STREPT SCREENon 11-20-2022 STREP SCREEN A Negative Normal NEGATIVE [facility] Comment on above: Performed By: #### G RASTCX, SSCRN #### [facility] [address] [place] [address] Dr. Luca Stanton GROUP A STREP CULTUREon 09-26 S. pyogenes Ag Ql (Unsp spec) Culture Observations: NEGATIVE FOR GROUP A STREPTOCOCCUS. Normal [facility] Comment on above: Performed By: #### S MARY GRASTCX #### [facility] [address] [place] [address] [address] Luca Stanton STREPT SCREENon 10-16-2022 STREP SCREEN A Negative Normal NEGATIVE [facility] Comment on above: Performed By: #### S MARY GRASTCX #### [facility] [address] [place], [place] [address] Dr. Luca Stanton Consent Formson 09-24-2022 Consent Forms [id number] [facility] Forms [id number]# [facility] T-Spoton 09-08-2022 T-Spot. TB Test Normal [facility] Comment on above: Result Comment: [facility] [address] [place] [address] (NOTE) T-SPOT.TB Test Results --------- T-SPOT TB [...] Passed Positive Control Passed Performed By: #### Timi ARTHUR, TSPOT #### [address] [address] Counterperson: Christiano Ospina MD VZ Immunityon 09-06-2022 VZ Immunity 2.21 Normal >1.09 [facility] Comment on above: Result Comment: Interpretation: IMMUNE Reference Range: <0.91 Not Immune 0.91-1.09 Equivocal >1.09 Immune Performed By: #### V ZI, TSPOT #### [facility] [address] [place], [place] [id number] Counterperson: Christiano Ospina MD ED Clinical Summaryon 2022 ED Clinical Summary [facility] ? Urgent Care [address] [place] [id number] Clinical Summary PERSON INFORMATION Name: LUI CARCAMO Age: 31 Years Sex: FEMALE : 1990 MRN: Acct#: Visit Reason: Medical screening exam; OTTERBEIN PHYSICAL Arrival: 09/02/2022 11:14:45 Discharge: 09/02/2022 12:31:00 LOS: 000 01:17 Check In: 09/02/2022 11:14:45 Checkout: 09/02/2022 12:31:00 Address: [address] [place] [address] PCP: GERONIMO VIGIL PROVIDER INFORMATION Provider Role Assigned Unassigned Cindy Leon PLATINUMSMITH Nurse 09/02/2022 11:21:29 Jamil Read PA-C ED [...] for duty examination Patient Understands: Comment: Normal [facility] ED Patient Summaryon 023 ED Patient Summary [facility] ? Urgent Care [address] [place] [address] [id number] PATIENT DISCHARGE INSTRUCTIONS Patient Information Name: LUI CARCAMO Age: 31 Years Date of : 1990 Reason For Visit: Medical screening exam; GALE PHYSICAL Arrival Time: 09/02/2022 11:14:45 Primary Care Physician: GERONIMO VIGIL Attending Physician: Jamil Read PA-C Comment: Patient Education Medication Information: The exam and treatment you received today in the [facility] Emergency Department were for an urgent problem and are not intended as complete care. It is important for you to follow up with a doctor, nurse practitioner, or physician?s underwriting assistant for ongoing care. If your symptoms [...] so we can reach you if necessary. [facility] Emergency Department has provided you with a complete list of medications post discharge. Please inform your director of primary/provider of your visit and for further instruction [...] for duty examination (Z02.89) Medical screening exam ([id number]) If you received any narcotics, sedation, or [...] Disease Control and Prevention April 2014 Normal [facility] Urgent Care Recordon 023 Urgent Care Record [facility] ? Urgent Care [address] [place] [address] PATIENT DISCHARGE INSTRUCTIONS Patient Information Name: LUI CARCAMO Age: 31 Years Date of : 1990 Reason For Visit: Medical screening exam; GALE PHYSICAL Arrival Time: 09/02/2022 11:14:45 Primary Care Physician: GERONIMO VIGIL Attending Physician: Jamil Read PA-C Comment: Visit Diagnosis: Diagnoses This Visit Encounter for fitness for duty examination (Z02.89) Medical screening exam ([id number]) If you received any narcotics, sedation, or [...] and treatment you received today in the [facility] were for an urgent problem and are not intended as complete care. It is important for you to follow up with a doctor, nurse practitioner, or physician?s underwriting assistant for ongoing care. If your symptoms [...] so we can reach you if necessary. [facility] Urgent Care has provided you with a complete list of medications post discharge. Please inform your director of primary/provider of your visit and for further instruction [...] for Disease Control and Prevention April 2014 [facility] XR CHEST 2 Von 04-30-2022 XR CHEST [...] by: PHU LOYD Date: 2022-04-30 10:41 Normal [facility] CBC AUTO DIFFon 12-04-2021 BASO # 0.0 103/ul Normal 0.0-0.1 [facility] Comment on above: Performed By: #### C BC #### [facility] [address] [place] [address] [address] Luca Stanton Basophils/100 WBC (Bld) 0.4 % Normal 0.2-2.0 [facility] Comment on above: Performed By: #### C BC #### [facility] [address] [place] [address] [address] Luca Stanton EO # 0.1 103/ul Normal 0.0-0.7 [facility] Comment on above: Performed By: #### C BC #### [facility] [address] [place] [address] Dr. Luca Stanton Eosinophils/100 WBC (Bld) 1.7 % Normal 0.9-7.0 [facility] Comment on above: Performed By: #### C BC #### [facility] [address] [place] [address] Dr. Luca Stanton Erythrocyte distribution width (RBC) [Ratio] 13.1 % Normal 11.0-15.0 [facility] Comment on above: Performed By: #### C BC #### [facility] [address] [place] [address] Dr. Luca Stanton Hematocrit (Bld) [Volume fraction] 38.5 % Normal 36.0-48.0 [facility] Comment on above: Performed By: #### C BC #### [facility] [address] [place] [address] Dr. Luca Stanton Hemoglobin (Bld) [Mass/Vol] 12.5 g/dL Normal 12.0-16.0 [facility] Comment on above: Performed By: #### C BC #### [facility] [address] [place] [address] Dr. Luca Stanton IG # 0.02 10e3/ul Normal 0.00-0.03 [facility] Comment on above: Performed By: #### C BC #### [facility] [address] [place] [address] Dr. Luca Stanton IG % 0.3 % Normal 0.0-0.5 [facility] Comment on above: Performed By: #### C BC #### [facility] [address] [place] [address] Dr. Luca Stanton LYMPH # 2.4 103/ul Normal 1.2-3.8 [facility] Comment on above: Performed By: #### C BC #### [facility] [address] [place] [address] Dr. Luca Stanton Lymphocytes/100 WBC (Bld) 31.3 % Normal 20.5-60.0 [facility] Comment on above: Performed By: #### C BC #### [facility] [address] [place] [address] Dr. Luca Stanton MANUAL DIFF REQ NO Normal [facility] Comment on above: Performed By: #### C BC #### [facility] [address] [place] [address] Dr. Luca Stanton MCH (RBC) [Entitic mass] 28.6 pg Normal 26.7-34.0 [facility] Comment on above: Performed By: #### C BC #### [facility] [address] [place] [address] Dr. Luca Stanton MCHC (RBC) [Mass/Vol] 32.5 g/dL Normal 29.9-35.2 [facility] Comment on above: Performed By: #### C BC #### [facility] [address] [place] [address] Dr. Luca Stanton MCV (RBC) [Entitic vol] 88.1 fL Normal 81.0-99.0 [facility] Comment on above: Performed By: #### C BC #### [facility] [address] [place] [address] Dr. Luca Stanton MONO # 0.4 103/ul Normal 0.3-0.8 [facility] Comment on above: Performed By: #### C BC #### [facility] [address] [place] [address] Dr. Luca Stanton Monocytes/100 WBC (Bld) 5.7 % Normal 1.7-12.0 [facility] Comment on above: Performed By: #### C BC #### [facility] [address] [place] [address] Dr. Luca Stanton NEUT # 4.7 103/ul Normal 1.4-6.5 [facility] Comment on above: Performed By: #### C BC #### [facility] [address] [place] [address] Dr. Luca Stanton Neutrophils/100 WBC (Bld) 60.6 % Normal 43.0-75.0 [facility] Comment on above: Performed By: #### C BC #### [facility] [address] [place] [address] Dr. Luca Stanton Platelet mean volume (Bld) [Entitic vol] 11.0 fL Normal 9.5-13.5 [facility] Comment on above: Performed By: #### C BC #### [facility] [address] [place] [address] Dr. Luca Stanton PLT 248 103/ul Normal 150-450 [facility] Comment on above: Performed By: #### C BC #### [facility] [address] [place] [address] Dr. Luca Stanton RBC 4.37 106/ul Normal 4.20-5.40 [facility] Comment on above: Performed By: #### C BC #### [facility] [address] [place] [address] Dr. Luca Stanton WBC 7.7 103/ul Normal 4.0-11.0 [facility] Comment on above: Performed By: #### C BC #### [facility] [address] [place] [address] Dr. Luca Stanton PROF 14(COMP METB)on 022 Albumin [Mass/Vol] 4.0 g/dL Normal 3.4-5.0 [facility] Comment on above: Performed By: #### T SH, CMP, T4 #### [facility] [address] [place] [address] Dr. Luca Stanton Albumin/Globulin [Mass ratio] 1.3 {ratio} Normal [facility] Comment on above: Performed By: #### T SH, CMP, T4 #### [facility] [address] [place] [address] [address] Luca Stanton ALP [Catalytic activity/Vol] 57 U/L Normal 46-116 [facility] Comment on above: Performed By: #### T SH, CMP, T4 #### [facility] [address] [place] [address] [address] Luca Stanton ALT [Catalytic activity/Vol] 17 U/L Normal 14-59 [facility] Comment on above: Performed By: #### T SH, CMP, T4 #### [facility] [address] [place] [address] [address] Luca Stanton Anion gap [Moles/Vol] 11.8 mmol/L Normal [facility] Comment on above: Performed By: #### T SH, CMP, T4 #### [facility] [address] [place] [address] Dr. Luca Stanton AST [Catalytic activity/Vol] 10 U/L Critically low 15-37 [facility] Comment on above: Performed By: #### T SH, CMP, T4 #### [facility] [address] [address] [address] Luca Stanton Bilirubin [Mass/Vol] 0.7 mg/dL Normal 0.2-1.3 [facility] Comment on above: Performed By: #### T SH, CMP, T4 #### [facility] [address] [address] [address] Luca Stanton Calcium [Mass/Vol] 8.5 mg/dL Normal 8.5-10.1 [facility] Comment on above: Performed By: #### T SH, CMP, T4 #### [facility] [address] [address] [address] Luca Stanton Chloride [Moles/Vol] 104 mmol/L Normal 98-107 [facility] Comment on above: Performed By: #### T SH, CMP, T4 #### [facility] [address] [address] [address] Luca Stanton CO2 [Moles/Vol] 29.1 mmol/L Normal 22.0-30.0 [facility] Comment on above: Performed By: #### T SH, CMP, T4 #### [facility] [address] [address] [address] Luca Stanton Creatinine [Mass/Vol] 0.77 mg/dL Normal 0.52-1.04 [facility] Comment on above: Performed By: #### T SH, CMP, T4 #### [facility] [address] [address] [address] Luca Stanton EGFR-AF BRUNEIAN >60 Normal >=60 [facility] Comment on above: Performed By: #### T SH, CMP, T4 #### [facility] [address] [address] [address] Luca Stanton EGFR-NON AF BRUNEIAN >60 Normal >=60 [facility] Comment on above: Performed By: #### T SH, CMP, T4 #### [facility] [address] [address] [address] Luca Stanton Globulin (S) [Mass/Vol] 3.1 g/dL Normal [facility] Comment on above: Performed By: #### T SH, CMP, T4 #### [facility] [address] [address] [address] Luca Stanton Glucose [Mass/Vol] 96 mg/dL Normal 74-106 [facility] Comment on above: Performed By: #### T SH, CMP, T4 #### [facility] [address] [address] [address] Luca Stanton Potassium [Moles/Vol] 3.9 mmol/L Normal 3.4-5.0 [facility] Comment on above: Performed By: #### T SH, CMP, T4 #### [facility] [address] [address] [address] Luca Stanton Protein [Mass/Vol] 7.1 g/dL Normal 6.1-8.2 [facility] Comment on above: Performed By: #### T SH, CMP, T4 #### [facility] [address] [address] [address] Luca Stanton Sodium [Moles/Vol] 141 mmol/L Normal 137-145 [facility] Comment on above: Performed By: #### T SH, CMP, T4 #### [facility] [address] [address] [address] Luca Stanton Urea nitrogen [Mass/Vol] 9.0 mg/dL Normal 7.0-18.0 [facility] Comment on above: Performed By: #### T SH, CMP, T4 #### [facility] [address] [place] [address] Dr. Lcua Stanton Urea nitrogen/Creatinin e [Mass ratio] 11.7 mg/mg Normal [facility] Comment on above: Performed By: #### T SH, CMP, T4 #### [facility] [address] [place] [address] Dr. Luca Stanton T4on 12-04-2021 T4 [Mass/Vol] 6.60 ug/dL Normal 5.53-11.00 [facility] Comment on above: Performed By: #### T SH, CMP, T4 #### [facility] [address] [place] [address] Dr. Luca Stanton TSHon 12-04-2021 TSH 1.653 uIU/mL Normal 0.470-4.680 [facility] Comment on above: Performed By: #### T SH, CMP, T4 #### [facility] [address] [place] [address] Dr. Luca Stanton TSH RANGE SEE BELOW Normal [facility] Comment on above: Result Comment: <0.3 4 UIU/ml HYPERTHYROID 0.34-5.60 UIU/ml EUTHYROID >5.60 UIU/ml HYPOTHYROID Performed By: #### T SH, CMP, T4 #### [facility] [address] [place] [address] Dr. Luca Stanton Vital Signs Date Time Vital Sign Value Performing Clinician Drui abhishek 09-24-2023 14:51-0500 Body height 160 cm [facility] 09-24-2023 14:51-0500 Body mass index (BMI) [Ratio] 26.39 kg/m2 [facility] 09-24-2023 14:51-0500 Body weight 67.59 kg [facility] 09-24-2023 14:51-0500 Diastolic blood pressure 72 mm[Hg] [facility] [employer] 09-24-2023 14:51-0500 Systolic blood pressure 112 mm[Hg] [facility] Encounters Encounter Date Encounter Type Care Provider Facility Start: 10-04-2023 End: 10-04-2023 Emergency department patient visit GERONIMO VIGIL [facility] Start: 09-24-2023 End: 09-24-2023 ambulatory GERONIMO VIGIL [facility] Start: 09-24-2023 End: 09-24-2023 Patient encounter procedure [facility] [place] Comment on above: Patient desires preg javier (Primary Dx); Encounter for IUD removal Start: 09-15-2023 Telephone encounter Stephanie coffman [facility]stetric[facility]Gyne[facility] Start: 08-27-2023 End: 08-28-2023 ambulatory GERONIMO VIGIL Facility:[facility] Start: 07-24-2023 End: 07-24-2023 ambulatory CINDY FULLER Not Available Start: 11-20-2022 End: 11-20-[address] GERONIMO VIGIL Facility:[facility] Start: 10-16-2022 End: 10-16-[address] GERONIMO VIGIL Facility:[facility] Start: 09-05-2022 End: 09-06-2022 [facility] Start: 09-05-2022 End: 09-05-2022 Subsequent hospital visit by physician [facility] Start: 09-02-2022 End: 09-02-2022 ambulatory GERONIMO VIGIL Facility:[facility] Start: 04-30-2022 End: 04-30-[address] GERONIMO VIGIL Facility:[facility] Start: 12-18-[address] GERONIMO VIGIL Facili ty:[facility] Start: 12-07-2021 Encounter for genera l adult medical examination without abnormal findings DR GERONIMO VIGIL [facility] Start: 12-04-2021 End: 12-05-[address] GERONIMO VIGIL Facility:[facility] Start: 12-04-2021 End: 12-05-2021 Encounter for general adult medical examination without abnormal findings DR GERONIMO VIGIL Facility:[facility] Procedures Date Procedure Procedure Detail Performing Clinician Start: 06-05-2023 Adult depression scr eening assessment Stephanie Monk Start: 10-03-2021 Microscopic observat ion [Identifier] in Cervix by Cyto stain Stephanie Monk Plan of Treatment Date Care Activity Detail Author Start: 03-12-2032 DTaP,Tdap and Td Vaccines (7 - Td or Tdap) DTaP,Tdap and Td Vaccines (7 - Td or Tdap) [facility] [facility] Start: 10-03-2024 Screening for malign ant neoplasm of cervix Pap Smear [facility] Start: 09-24-2024 Adult BMI Screening Adult BMI Screen ing [facility] [facility] Start: 08-11-2024 Adult BMI Screening [facility] Start: 08-11-2024 Tobacco Screening Tobacco Screening [facility] Start: 06-05-2024 Adult BMI Follow Up Plan Adult BMI Follow Up Plan [facility] Start: 06-05-2024 Depression Screening Depression Scre ening [facility] Start: 04-25-2023 Influenza vaccination Influenza Vacc ine [facility] [facility] Start: 03-25-2022 Influenza vaccination Flu vaccine (# 1) [facility] [employer] Start: 11-18-2010 DTaP/Tdap/Td vaccine (1 - Tdap) DTaP/Tdap/Td vaccine (1 - Tdap) [employer] Start: 05-21-1992 COVID-19 Vaccine (#1) COVID-19 Vacci ne (#1) [employer] Start: 1991 Tobacco Counseling Tobacco Counselin g [facility] End: 09-05-2022 Tb antigen response gamma interferon t-cell susp [employer]: Comment on above: Once for 1 Occurrenc es starting 09/05/2022 until 09/05/2022 End: 09-05-2022 Varicella Zoster Antibody, IgG [employer]: Comment on above: Once for 1 Occurrenc es starting 09/05/2022 until 09/05/2022 Immunizations Immunization Date Immunization Notes Care Provider Ambar etienne 02-21-2022 influenza virus vaccine, unspecified formulation [facility] 07-26-2017 measles, mumps and rubella virus vaccine [facility] NEGATED: Highlighted row has not occurred!02-10-2020 measles, mumps and rubella virus vaccine [facility] Comment on above: Deferred: - pt immun e NEGATED: Highlighted row has not occurred!02-10-2020 tetanus toxoid, reduced diphtheria toxoid, and acellular pertussis vaccine, adsorbed [facility] NEGATED: Highlighted row has not occurred!02-10-2020 varicella virus vaccine [facility] Comment on above: Deferred: - pt immun e NEGATED: Highlighted row has not occurred!09-04-2018 tetanus toxoid, reduced diphtheria toxoid, and acellular pertussis vaccine, adsorbed [facility] NEGATED: Highlighted row has not occurred!07-26-2017 tetanus toxoid, reduced diphtheria toxoid, and acellular pertussis vaccine, adsorbed [facility] NEGATED: Highlighted row has not occurred!07-26-2017 varicella virus vaccine [facility] Comment on above: Deferred: Other - PA TIENT DECLINES. STATES SHE HAD CHICKEN POX. NEGATED: Highlighted row has not occurred!07-25-2017 tetanus toxoid, reduced diphtheria toxoid, and acellular pertussis vaccine, adsorbed [facility] NEGATED: Highlighted row has not occurred!07-25-2017 varicella virus vaccine [facility] Comment on above: Deferred: - PT STATE S SHE HAD CHICKEN POX A CHILD Payers Date Payer Category Payer Medicaid [place] [employer] [id number] 2003-Present [phone] [address] [place] [address] [id number] 1991 Unknown [id number] 1991 Unknown [id number] 1991 Unknown [id number] 1991 Unknown [id number] 1991 Unknown [id number] 1991 Unknown [id number] 1991 Unknown [id number] 1991 Unknown [id number] 1959 Unknown [id number] Social History Date Type Detail Facility Start: 03-12-2013 Tobacco smoking stat [facility] Tobacco smoking consumption unknown [employer]: Start: 03-12-2013 End: 09-24-2023 Alcohol intake Current drinker of alcohol (finding) [employer]: Start: 03-12-2013 Alcohol Comment I drink occasional ly. [employer]: Start: 1990 Sex Assigned At Not on file [employer]: Start: 06-05-2023 Tobacco smoking stat [facility] Occasional tobacco smoker [facility] History of tobacco use Cigarette Smoker P [facility] Start: 06-05-2023 Tobacco use and exposure Smokeless tobacco non-user [facility] Start: 09-05-2020 End: 08-11-2023 History of Social function [facility] Start: 09-05-2020 End: 08-11-2023 Tobacco use panel [facility] Adolescent depressio n screening assessment 1 [facility] The thought of pipe burks myself has occurred to me Never [facility] Start: 05-26-2019 Alcohol Comment [facility] Clinical Notes 09-02-2022 to 09-24-2023 RADHA Rashid - 09/24/2023 3:15 PM ESTMedical Student - Rex Mcdonnell - 09/24/2023 3:15 PM ESTMedical Student - Rex Mcdonnell - 09/24/2023 3:15 PM EST Note Date & Type Note Facility 09-24-2023 History of Presen t illness Narrative IUD Removal Procedure Note Type of IUD: liletta Date of insertion: 05-03-2020 Reason for removal: Desires Other relevant history/information: none Procedure Time Out Documentation Procedure Details IUD strings visible: yes Removal: IUD strings grasped and IUD removed intact with gentle traction. The patient tolerated the procedure well. All appropriate instructions regarding removal were reviewed. Plans for contraception: no method Other follow-up needed: patient to call with positive test. vitamin sent to pharmacy. The patient was advised to call for any fever or for prolonged or severe pain or bleeding. She was advised to use OTC ibuprofen as needed for mild to moderate pain. Ally Kim APRN-RADHA Byrne 09/24/23 1537 documented in this encounter [facility] 09-24-2023 Miscellaneous Notes Formattin g of this note might be different from the original. Disclaimer: This note is intended for educational purposes only. It does not constitute a patient visit and is not to be used or relied on for treatment, billing, or any other purposes. It has been created solely for to enable the student to practice documentation to achieve the expected level of competency in charting and receive feedback regarding same. This note is not a part of the legal medical record. documented in this encounter [facility] 09-24-2023 Progress note Formatting of t his note might be different from the original. Disclaimer: This note is intended for educational purposes only. It does not constitute a patient visit and is not to be used or relied on for treatment, billing, or any other purposes. It has been created solely for to enable the student to practice documentation to achieve the expected level of competency in charting and receive feedback regarding same. This note is not a part of the legal medical record. [facility]23 Miscellaneous Notes Formattin g of this note might be different from the original. Patient called requesting refills on her zovirax. She does not have a full blown break out yet but she can tell it's about to start. Pharmacy information has been verified. OK to lvm for patient as she is in orientation at work. Please advise. Thank you. Rx. Sent to pharmacy and left apprising pt. That Rx. Sent as requested. documented in this encounter [facility] 09-15-2023 Telephone encount er Note Patient called requesting refills on her zovirax. She does not have a full blown break out yet but she can tell it's about to start. Pharmacy information has been verified. OK to lvm for patient as she is in orientation at work. Please advise. Thank you. [facility] 09-15-2023 Telephone encount er Note Rx. Sent to pharmacy and left apprising pt. That Rx. Sent as requested. 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 * How to plan and prepare for a healthy (Yoruba) [facility] Purpose Family History No Family History Records FoundNo Family History Records FoundNo Family History Records FoundNo Family History Records FoundNo Family History Records FoundNo Family History Records Found Advance Directives No Advanced Directives Records FoundLatest Code Status on File Code Status Date Activated Date Inactivated Comments Full Code 02/10/2020 8:51 AM 02/11/2020 9:31 PM Code Status History Code Status Date Activated Date Inactivated Comments Full Code 02/05/2020 9:26 PM 02/05/2020 11:38 PM Full Code 09/02/2018 4:32 PM 09/04/2018 10:10 PM Full Code 07/23/2017 1:00 PM 07/26/2017 4:59 PM Additional Source Comments INFORMATION SOURCE (unrecogn ized section and content) DATE CREATED AUTHOR 09/08/2022 [facility] DATE CREATED AUTHOR AUTHOR'S ORGANIZ ATION 11/24/2022 [facility] DATE CREATED AUTHOR AUTHOR'S ORGANIZ ATION 07/26/2023 [facility] EPIC DATE CREATED AUTHOR AUTHOR'S ORGANIZ ATION 09/01/2023 [facility] DATE CREATED AUTHOR AUTHOR'S ORGANIZ ATION 09/28/2023 [facility] DATE CREATED AUTHOR AUTHOR'S ORGANIZ ATION 10/06/2023 [facility] Care Teams (unrecognized sec tion and content) 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 [employer] [facility]. provides no warranty or guarantee of the accuracy or completeness of information in this document.
[2023-10-15 17:29] VITALS: BP 101/72; PULSE 116; RESP 18; TEMP 37.9; O2SAT 99; BMI 26.5
--- NOTE | 2023-10-15 17:34 | XR_ITS ---
The [address] [address] Patient Name: LUI CARCAMO MRN: [id number] date: 1990 Sex: F Assigned Patient Location: ER Current Patient Location: ER Accession/Order Number: [id number] Exam Date: 10/15/2023 17:45 Report Date: 10/15/2023 18:21 At the request of: GUY MONTESINOS Procedure: XR chest 2V EXAMINATION: XR chest 2V 10/15/2023 3:19 PM [facility], [id number]. HISTORY: pain TECHNIQUE: 2 views of the chest were acquired. COMPARISONS: Chest x-ray 08/22/2023 FINDINGS: Lines/tubes/other: None. Heart and mediastinum: Within normal limits. Bones: No acute osseous abnormality. Lungs: Mild patchy opacification of the right base. No pulmonary edema. Pleura: No pleural effusion or pneumothorax. Other: No pneumoperitoneum. XR/XR chest 2V IMPRESSION: Mild patchy opacification of the right base suspect for pneumonia in the appropriate clinical context. Electronically authenticated by: ERIC LAWRENCE Date: 10/15/2023 18:21
[2023-10-15 17:59] LABS: SARS-CoV-2 Ag NEGATIVE (NEGATIVE)
[2023-10-15 18:00] LABS: Influenza Virus A Antigen Negative; Influenza Virus B Antigen Negative; Internal Control Within Normal Limits
== END 2023-10-15 20:21 | disposition left against medical advice (07) ==
PROVIDERS: Emergency Provider Emergency Medicine; PCP Family Medicine
DX: R05.9 Cough, unspecified (principal); Z53.21 Procedure and treatment not carried out due to patient leaving prior to being seen by health care provider
CPT/HCPCS: 71046; 87804; 87811; 99281; 99283

== ENCOUNTER 2025-03-14 16:09 | Outpatient (OUT) | payer OTHER, SELFPAY ==
--- NOTE | 2025-03-14 16:11 | US_ITS ---
The [address] [address] Patient Name: LUI MENDEZ MRN: [id number] date: 1990 Sex: F Assigned Patient Location: Current Patient Location: Accession/Order Number: [id number] Exam Date: 03/15/2025 09:01 Report Date: 03/15/2025 09:09 At the request of: MELINDA TINOCO Procedure: US pelvis w/ transvaginal Pelvic ultrasound. Reason for exam: Intrauterine device placement Comparison: none Technique: Transabdominal imaging of the uterus and ovaries was performed. Transvaginal imaging of the uterus and ovaries was also obtained. Additional spectral Doppler analysis of the ovaries was also obtained. Findings: Uterus measures 10.3 x 5.0 x 5.7 cm. No measurable fibroid is seen. Endometrium measures 8.9 mm without focal abnormality. IUD is seen within the endometrial canal in satisfactory position. Right ovary measures 3.0 x 2.1 x 2.7 cm. Left ovary measures 3.1 x 1.5 x 2.4 cm. Normal arterial and venous Doppler waveforms of the ovaries. No adnexal mass or cyst. No free fluid. US/US pelvis w/ transvaginal Impression: Unremarkable pelvic ultrasound. IUD in satisfactory position. Impression dictated by: Rigo Gray Jr., D.O. 03/15/2025 9:09 AM Dictation Location: [place] [address] Electronically authenticated by: [id number] Y Date: 03/15/2025 09:09
== END 2025-03-14 16:10 | disposition home or self-care (01) ==
LOC: US 16:09
PROVIDERS: Visit Provider Physician Assistant
DX: Z30.430 Encounter for insertion of intrauterine contraceptive device (principal)
CPT/HCPCS: 76830; 76856

== ENCOUNTER 2025-03-28 15:17 | Outpatient (REF) | payer OTHER, SELFPAY ==
--- OUTSIDE RECORDS SUMMARY | 2025-03-28 11:00 | XMS_ITS | Encounter Summary ---
Author Organization [facility] Address [address] [place] [address] Care Team Providers Care Dinkey Locomotive Engineer Name Role Phone Unavailable Primary Care Provider Unavailabl e Reason for Visit * Reason Comments Well Women Visit Contraception String Check Encounter Details Date Type Department Care Team (Late st Contact Info) Description 03/28/2025 11:00 AM EDT Office Visit [facility] [address] [place] [id number] Melissa Maeys PA [address] [place], [facility] Well woman exam with routine gynecological exam; Encounter for routine checking of intrauterine contraceptive device (IUD) Social History Tobacco Use Types Packs/Day Years Used Date Smoking Tobacco: Some Days Cigarettes Passive Smoke Exposure: Never Smokeless Tobacco: Never Comments No Sex and Gender Information Value Date Recorded Sex Assigned at Not on file Legal Sex Female 11:36 PM EDT Gender Identity Not on file Sexual Orientation Not on file documented as of this encounter Last Filed Vital Signs Vital Sign Reading Time Taken Comments Blood Pressure 110/60 03/28/2025 11:11 AM EDT Pulse - - Temperature - - Respiratory Rate - - Oxygen Saturation - - Inhaled Oxygen Concentration - - Weight 85 kg (187 lb 6.4 oz) 03/28/2025 11:11 AM EDT Height 157.5 cm (5' 2 ) 03/28/2025 11:11 AM EDT Body Mass Index 34.28 03/28/2025 11:11 AM EDT documented in this encounter Progress Notes * Sara Beth LPN - 03/28/2025 11:00 AM EDT Reason for Appointment: Patient ID: Kelly Mcdaniel is a 34 y.o. female who presents for Well Women Visit and Contraception (String Check) Patient presents today for Annual Exam and String Check. MEDICATIONS Current Outpatient Medications Medication Instructions amoxicillin-clavulanate (Augmentin) 875-125 MG tablet 875 mg, 2 times daily clindamycin-benzoyl peroxide (BenzaClin) gel Apply to the face, once daily in the morning, 30 day supply fluconazole (DIFLUCAN) 100 mg, Once spironolactone (Aldactone) 50 MG tablet Take 3 tablets, by mouth, once daily, 30 days sulfacetamide suspension (Klaron) 10 % lotion topical Apply thin layer to face once daily, 30 day supply. ALLERGIES Allergies Allergen Reactions Bee Pollen Other Reaction(s): Unknown PROBLEMS Active Ambulatory Problems Diagnosis Date Noted No Active Ambulatory Problems Resolved Ambulatory Problems Diagnosis Date Noted No Resolved Ambulatory Problems Past Medical History: Diagnosis Date Gestational diabetes ([facility]) HISTORY PAST MEDICAL HISTORY SOCIAL HISTORY Past Medical History: Diagnosis Date Gestational diabetes ([facility]) Social History Tobacco Use Smoking status: Some Days Types: Cigarettes Passive exposure: Never Smokeless tobacco: Never Substance Use Topics Alcohol use: Not on file Drug use: Not on file FAMILY HISTORY No family history on file. SURGICAL HISTORY Past Surgical History: Procedure Laterality Date SECTION, LOW TRANSVERSE 07/26/2024 REVIEW OF SYSTEMS Review of Systems: Review of Systems All other systems reviewed and are negative. OBJECTIVE Objective: Physical Exam Constitutional: Appearance: Normal appearance. She is well-developed. Genitourinary: Vulva normal. Cardiovascular: Rate and Rhythm: Normal rate and regular rhythm. Pulmonary: Effort: Pulmonary effort is normal. Breath sounds: Normal breath sounds. Abdominal: General: Bowel sounds are normal. There is no distension. Palpations: Abdomen is soft. Tenderness: There is no abdominal tenderness. There is no guarding or rebound. Musculoskeletal: General: No swelling. Normal range of motion. Right lower leg: No edema. Left lower leg: No edema. Neurological: Mental Status: She is alert and oriented to person, place, and time. Skin: General: Skin is warm and dry. Psychiatric: Mood and Affect: Mood normal. Behavior: Behavior normal. Vitals and nursing note reviewed. Exam conducted with a server manager present. Vitals: Estimated body mass index is 34.28 kg/m?? as calculated from the following: Height as of this encounter: 5' 2 . Weight as of this encounter: 187 lb 6.4 oz. BP: 110/60 No LMP recorded. (Menstrual status: IUD). ASSESSMENT & PLAN ICD-10-CM 1. Well woman exam with routine gynecological exam Z01.419 Pap Smear HPV DNA probe, amplified 2. Encounter for routine checking of intrauterine contraceptive device (IUD) Z30.431 Annual Exam: Patient presents today for an annual exam. Patient states she is doing well and has no complaints. Pap was obtained without difficulty. IUD String Check: Patient is doing well but has some complaints of bleeding and cramping following IUD placement. Patient presents today for IUD string check. Strings were visualized and are noted to be intact. Patient did state that she had painful intercourse not sure if IUD moved. Previously had Ultrasound to check placement. Follow Up: Patient is to return to the office for annual exam unless needed otherwise. Orders Placed This Encounter Procedures HPV DNA probe, amplified Follow Up: Patient is to return in one year for annual unless needed otherwise. Documented by Sara Beth LPN on behalf of: RODRICK Melton * RODRICK Melton - 03/28/2025 11:00 AM EDT Reason for Appointment: Patient ID: Kelly Mcdaniel is a 34 y.o. female who presents for Well Women Visit and Contraception (String Check) Patient presents today for Annual Exam. MEDICATIONS Current Outpatient Medications Medication Instructions amoxicillin-clavulanate (Augmentin) 875-125 MG tablet 875 mg, 2 times daily clindamycin-benzoyl peroxide (BenzaClin) gel Apply to the face, once daily in the morning, 30 day supply fluconazole (DIFLUCAN) 100 mg, Once spironolactone (Aldactone) 50 MG tablet Take 3 tablets, by mouth, once daily, 30 days sulfacetamide suspension (Klaron) 10 % lotion topical Apply thin layer to face once daily, 30 day supply. ALLERGIES Allergies Allergen Reactions Bee Pollen Other Reaction(s): Unknown PROBLEMS Active Ambulatory Problems Diagnosis Date Noted No Active Ambulatory Problems Resolved Ambulatory Problems Diagnosis Date Noted No Resolved Ambulatory Problems Past Medical History: Diagnosis Date Gestational diabetes ([facility]) HISTORY PAST MEDICAL HISTORY SOCIAL HISTORY Past Medical History: Diagnosis Date Gestational diabetes ([facility]) Social History Tobacco Use Smoking status: Some Days Types: Cigarettes Passive exposure: Never Smokeless tobacco: Never Substance Use Topics Alcohol use: Not on file Drug use: Not on file FAMILY HISTORY No family history on file. SURGICAL HISTORY Past Surgical History: Procedure Laterality Date SECTION, LOW TRANSVERSE 07/26/2024 REVIEW OF SYSTEMS Review of Systems: Review of Systems Constitutional: Negative. HENT: Negative. Eyes: Negative. Respiratory: Negative. Cardiovascular: Negative. Gastrointestinal: Negative. Genitourinary: Negative. Musculoskeletal: Negative. Skin: Negative. Neurological: Negative. All other systems reviewed and are negative. Hematological: Negative. Endocrine: Negative. Allergic/Immunologic: Negative. OBJECTIVE Objective: Physical Exam Constitutional: Appearance: Normal appearance. Genitourinary: Right Adnexa: not tender and no mass present. Left Adnexa: not tender and no mass present. No cervical discharge. IUD strings visualized. Breasts: Breasts are soft. Right: Normal. Left: Normal. HENT: Head: Normocephalic. Nose: Nose normal. Mouth/Throat: Mouth: Mucous membranes are moist. Cardiovascular: Rate and Rhythm: Normal rate. Pulmonary: Effort: Pulmonary effort is normal. Abdominal: General: Bowel sounds are normal. Palpations: Abdomen is soft. Musculoskeletal: General: Normal range of motion. Cervical back: Normal range of motion. Neurological: General: No focal deficit present. Mental Status: She is alert. Skin: General: Skin is warm and dry. Psychiatric: Mood and Affect: Mood normal. Vitals and nursing note reviewed. Exam conducted with a server manager present. Vitals: Estimated body mass index is 34.28 kg/m?? as calculated from the following: Height as of this encounter: 5' 2 . Weight as of this encounter: 187 lb 6.4 oz. BP: 110/60 No LMP recorded. (Menstrual status: IUD). ASSESSMENT & PLAN ICD-10-CM 1. Well woman exam with routine gynecological exam Z01.419 Pap Smear HPV DNA probe, amplified 2. Encounter for routine checking of intrauterine contraceptive device (IUD) Z30.431 Annual Exam: Patient presents today for an annual exam. Patient states she is doing well and has no complaints. Pap was obtained without difficulty. Orders Placed This Encounter Procedures HPV DNA probe, amplified Follow Up: Patient is to return in one year for annual unless needed otherwise. Documented by RODRICK Melton on behalf of: RODRICK Melton documented in this encounter Plan of Treatment Upcoming Encounters Date Type Department Care Team (Late st Contact Info) Description 11/30/2025 10:15 AM EDT Office Visit [facility] [address] [place] [address] Cindy Faye MD [address] [place] [address] Scheduled Orders Name Type Priority Associated Diagnoses Orde r Schedule Pap Smear Pathology and Cytology Routine Well woman exam with routine gynecological exam Ordered: 03/28/2025 HPV DNA probe, amplified Microbiology Routine Well woman exam with routine gynecological exam Ordered: 03/28/2025 documented as of this encounter Visit Diagnoses Diagnosis Well woman exam with routine gynecological exam Routine gynecological examination Encounter for routine checking of intrauterine contraceptive device (IUD) documented in this encounter
--- OUTSIDE RECORDS SUMMARY | 2025-03-28 15:20 | XMS_ITS | Encounter Summary ---
Author Organization [employer] [facility] tem Address [id number] [address] [place] [address] Care Team Providers Care Soaker Soda Worker Name Role Phone Geronimo Reece DO Primary Care Provider [phone] Encounter Details Date Type Department Care Team (Late st Contact Info) Description 01/13/2023 [facility] [address] [place] [phone] Rola Moreira CMA Social History Tobacco Use Types Packs/Day Years Used Date Smoking Tobacco: Every Day Cigarettes Last attempted to quit: 04/26/2019 Smokeless Tobacco: Never Alcohol Use Standard Drinks/Week Comments Yes 0 (1 standard drink = 0.6 oz pur e alcohol) Occasional Omaha Depression Scale Answer Date Recorded [place] Depression Scale Total 7 03/22/2020 The thought of harming myself has occurred to me . Never 03/22/2020 Childcare Answer Date Recorded Childcare Unknown 02/03/2019 Employment Answer Date Recorded Employment Unknown 02/03/2019 Purpose - Life Answer Date Recorded Purpose and direction in life Unknown Comments No Sex and Gender Information Value Date Recorded Sex Assigned at Not on file Legal Sex Female 11:45 AM EDT Gender Identity Not on file Sexual Orientation Not on file documented as of this encounter Miscellaneous Notes * Telephone Encounter - Rola Moreira CMA - 01/13/2023 8:14 AM EDT Pt called in stating she is having an HSV outbreak and is requesting treatment sent to [facility] in [place]. * Telephone Encounter - DANIEL Cai - 01/13/2023 8:14 AM EDT Rx sent in pre pt request Acyclovir 800 mg twice daily for 5 days documented in this encounter Plan of Treatment Not on file documented as of this encounter Visit Diagnoses Not on filedocumented in this encounter Additional Health Concerns Infection Onset Date Last Indicated Resolved Time COVID-19 Rule-Out 10/16/2023 10/16/2023 10/16/2023 9:38 AM EST COVID-19 Rule-Out 10/27/2023 10/27/2023 10/27/2023 9:43 PM EST Influenza 10/27/2023 10/27/2023 11/03/2023 11:1 2 PM EDT COVID-19 Rule-Out 03/03/2024 03/03/2024 03/03/2024 11:14 AM EDT Assessment Noted Time A Body Mass Index follow-up plan has been documented for the patient 10/03/2021 10:13 AM EST documented as of this encounter Care Teams Soaker Soda Worker Relationship Specialty Start Date End Date Geronimo Reece DO [address] [id number] PCP - General Family Medicine 03/03/24 documented as of this encounter
--- OUTSIDE RECORDS SUMMARY | 2025-03-28 15:20 | XMS_ITS | Encounter Summary ---
Author Organization [employer] [facility] tem Address [id number] [address] [place] [address] Care Team Providers Care Winder Fixer Name Role Phone Geronimo Reece DO Primary Care Provider [phone] Encounter Details Date Type Department Care Team (Late st Contact Info) Description 08/28/2020 [facility] [address] [place] [phone] Brigette Mondragon MA Social History Tobacco Use Types Packs/Day Years Used Date Smoking Tobacco: Former Cigarettes Q uit: 04/26/2019 Smokeless Tobacco: Never Alcohol Use Standard Drinks/Week Comments Not Currently 0 (1 standard drink = 0.6 oz pur e alcohol) Occasional Rupert Depression Scale Answer Date Recorded Rupert Depression Scale Total 7 03/22/2020 The thought of harming myself has occurred to me . Never 03/22/2020 Childcare Answer Date Recorded Childcare Unknown 02/03/2019 Employment Answer Date Recorded Employment Unknown 02/03/2019 Comments No Sex and Gender Information Value Date Recorded Sex Assigned at Not on file Legal Sex Female 11:45 AM EDT Gender Identity Not on file Sexual Orientation Not on file documented as of this encounter Miscellaneous Notes * Telephone Encounter - Brigette Mondragon MA - 08/28/2020 2:05 PM EST Patient returned phone call, dates and times of surgery were given to patient Brigette Mondragon MA 08/28/20 1406 documented in this encounter Plan of Treatment Not on file documented as of this encounter Visit Diagnoses Not on filedocumented in this encounter Additional Health Concerns Infection Onset Date Last Indicated Resolved Time COVID-19 Rule-Out 06/11/2021 06/11/2021 06/11/2021 6:04 PM EDT COVID-19 Rule-Out 10/16/2023 10/16/2023 10/16/2023 9:38 AM EST COVID-19 Rule-Out 10/27/2023 10/27/2023 10/27/2023 9:43 PM EST Influenza 10/27/2023 10/27/2023 11/03/2023 11:1 2 PM EDT COVID-19 Rule-Out 03/03/2024 03/03/2024 03/03/2024 11:14 AM EDT documented as of this encounter Care Teams Winder Fixer Relationship Specialty Start Date End Date Geronimo Reece DO [address] [place] [address] PCP - General Family Medicine 03/03/24 documented as of this encounter
--- OUTSIDE RECORDS SUMMARY | 2025-03-28 15:20 | XMS_ITS | Clinical Summary ---
Author Organization [employer] tem Address [facility] [place]-[id number] [address] [place] [address] Care Team Providers Care Tax Associate Name Role Phone Geronimo Reece DO Primary Care Provider [phone] Allergies No known active allergies Medications lancets (freestyle) 28 gauge misc Check fingerstick glucose in the a.m. fasting and 1 hour postprandial (after breakfast, lunch, and dinner) 60 each 5 4 Active Additional Information Patient not taking.Reported on 08/23/2024 blood-glucose meter miscIndications :Hx of macrosomia in infant in prior , currently ,Histor y of gestational diabetes,LGA (large for gestational age) fetus affecting management of mother, third trimester, fetus 1 Check fingerstick glucose in the a.m. fasting then 1 hour postprandial (after breakfast, lunch, and dinner) 1 each 4 Active Additional Information Patient not taking.Reported on 08/23/2024 ibuprofen (MOTRIN) 800 mg tablet Take 1 tablet (800 mg total) by mouth every 6 (six) hours as needed for pain. 60 tablet 4 Active docusate sodium (COLACE) 100 mg capsule Take 1 capsule (100 mg total) by mouth in the morning and 1 capsule (100 mg total) before bedtime. 60 capsule 4 Active Additional Information Patient not taking.Reported on 08/23/2024 acetaminophen (TYLENOL EXTRA STRENGTH) 500 mg tablet Take 2 tablets (1,000 mg total) by mouth every 6 (six) hours as needed for pain. 60 tablet 4 Active Active Problems Problem Noted Date Diagnosed Date Pain during labor 07/25/2024 Macrosomia of fetus affectin g management of mother in [place] in third trimester 07/18/2024 Maternal care for breech presentation, single ge station 07/18/2024 Mother positive for group B Streptococcus coloni zation 07/08/2024 Uterine cramping 07/07/2024 Iron deficiency anemia during 05/10/20 Nausea/vomiting in 12/11/2023 Hx of macrosomia in infant i n prior , currently 12/02/2023 Hx of ectopic 12/02/2023 HSV-2 infection complicating 3 History of gestational diabe chela mellitus (GDM) in prior , currently 03/21/2020 Overview (03/25/2024): Early 1 hour glucose screen: 147 mg/dL Passed 3 hr GTT (02/02/24) Rpt at 28 wks Hx of delivery by vacuum extraction, currently p regnant 04/30/2017 Resolved Problems Problem Noted Date Diagnosed Date Resolved Date 36 weeks gestation of 07/07/2024 07/18/2024 Immunizations Immunization Administration Dates Next Due MMR 02/10/2020(Deferred: - pt immune ),07/26/2017 Tdap 02/10/2020(), 019(),07/26/2017(),07/25/2017(),07/25/2017( ) Varicella 02/10/2020(Deferred: - pt immune),07/26/2017(Deferred: Other - PATIENT DECLINES. STATES SHE HAD CHICKEN POX.),07/25/2017(Deferred: - PT STATES SHE HAD CHICKEN POX A CHILD),07/25/2017() Family History Medical History Relation Name Comments No Known Problems Father Diabetes Maternal Uncle No Known Problems Mother Cancer Paternal Grandfather Diabetes Paternal Uncle Breast cancer Neg Hx Hypertension Neg Hx Ovarian cancer Neg Hx Stroke Neg Hx Relation Name Status Comments Father Alive Maternal Uncle Mother Alive Paternal Grandfather Paternal Uncle Social History Tobacco Use Types Packs/Day Years Used Date Smoking Tobacco: Former Cigarettes Smokeless Tobacco: Never Tobacco Cessation:Counseling Given: Not Answered Comments:States quit tobacco products end 2022 Alcohol Use Standard Drinks/Week Comments Not Currently 0 (1 standard drink = 0.6 oz pur e alcohol) Occasional [facility] Utilities Answer Date Recorded In the past 12 months has th e electric, gas, oil, or water company threatened to shut off services in your home? No 07/18/2024 Social Connection and Isolation Panel [NHANES] A nswer Date Recorded In a typical week, how many times do you talk on the phone with family, friends, or neighbors? Three times a week 04/22/2024 How often do you get togethe r with friends or relatives? Three times a week 04/22/2024 How often do you attend chur ch or presybeterian services? Never 04/22/2024 Do you belong to any clubs o r organizations such as latter-day groups, unions, fraternal or athletic groups, or school groups? No 04/22/2024 How often do you attend meet ings of the clubs or organizations you belong to? Never 04/22/2024 Are you , , di vorced, , never , or living with a partner? 04/22/2024 Overall Financial Resource Strain (CARDIA) Answe r Date Recorded How hard is it for you to pa y for the very basics like food, housing, medical care, and heating? Not hard at all 07/22/2024 PHQ-2 Answer Date Recorded Total Score 0 07/22/2024 Exercise Vital Sign Answer Date Recorde d On average, how many days pe r week do you engage in moderate to strenuous exercise (like a brisk walk)? 3 days 04/22/2024 On average, how many minutes do you engage in exercise at this level? 30 min 04/22/2024 PRAPARE - Transportation Answer Date Re corded In the past 12 months, has l ack of transportation kept you from medical appointments or from getting medications? No 06/26 In the past 12 months, has l ack of transportation kept you from meetings, work, or from getting things needed for daily living? No 07/18/2024 [place] Depression Scale Answer Date Recorded [place] Depression Scale Total 7 03/22/2020 The thought of harming myself has occurred to me . Never 03/22/2020 Housing Instability Answer Date Recorde d Are you worried or concerned that in the next two months you may not have stable housing that you own, rent or stay in as a part of a household? No 07/22/2024 Childcare Answer Date Recorded Do problems getting child ca re make it difficult for you to work or study? No 07/22/2024 Employment Answer Date Recorded Do you need help finding a [facility] career center and/or a training program? No 04/22/2024 Hunger Screening Answer Date Recorded Within the past 12 months we worried whether our food would run out before we got money to buy more. Never True 08/23/2024 Within the past 12 months th e food we bought just didn't last and we didn't have money to get more. Never True 08/23/2024 Purpose - Life Answer Date Recorded I have a purpose and direction in my life. Stron gly Agree 04/22/2024 Comments No Sex and Gender Information Value Date Recorded Sex Assigned at Not on file Legal Sex Female 11:45 AM EDT Gender Identity Not on file Sexual Orientation Not on file Last Filed Vital Signs Vital Sign Reading Time Taken Comments Blood Pressure 112/60 08/23/2024 3:38 PM EST Pulse 96 07/28/2024 1:15 PM EST Temperature 36.8 C (98.2 F) 07/28/2024 1:15 PM EST Respiratory Rate 16 07/28/2024 1:15 PM EST Oxygen Saturation 97% 07/25/2024 6:30 AM EST Inhaled Oxygen Concentration - - Weight 85.4 kg (188 lb 3.2 oz) 08/23/2024 3:38 P M EST Height 157.5 cm (5' 2.01 ) 07/20/2024 4:36 PM ES T Body Mass Index 34.41 07/20/2024 4:36 PM EST Plan of Treatment Health Maintenance Due Date Last Done Comments Adult BMI Follow Up Plan 06/05/2024 06/05/2023 Pap Smear 10/03/2024 10/03/2021, 02/0 04/2022, 07/13/2019 Influenza Vaccine 04/25/2025 02/21/2022, , 08/29/2008, Additional history exists Depression Screening 07/22/2025 07/22/2024, 03/22/20 20 Adult BMI Screening 08/23/2025 08/23/2024 Tobacco Screening 08/23/2025 08/23/2024 DTaP,Tdap and Td Vaccines (7 - Td or Tdap) 03/12/2032 03/12/2022, 03/05/1996, 06/14/1993, Additional history exists Medical Devices Not on file Procedures Procedure Name Priority Date/Time Associated Diagnosis Comments PAP SMEAR Routine 10/03/2021 10:43 AM EST Cervical smear, as part of routine gynecological examination from Last 3 Months or Most Recently Relevant to Health Maintenance Results * Pap Smear (10/03/2021 10:43 AM EST) 10/03/2021 10:4 3 AM EST 10/04/2021 10:45 AM EST Narrative COPATH - 10/05/2021 2:42 PM EST [facility] [address] [place] [address] Gynecologic Cytology Consultation Patient Name: LUI CARCAMO : 1990 (Age: 30) Gender: F Taken: 10/03/2021 Reported: 10/05/2021 Physician(s): SANDRA OsorioSOFTWARE TEST MANAGER Copy To: [facility]. Rec. #: [id number] Acct: # [id number] Final Cytologic Interpretation ThinPrep Pap Test (Cervical): Satisfactory for evaluation. A transformation zone component is present. NEGATIVE FOR INTRAEPITHELIAL LESION OR MALIGNANCY. [facility] [place]/10/05/2021 Interpret[place] [address], License number: [id number]. Electronically Signed Out By SCOTT Starr(ASCP) Date of Last Menstrual Period: (None Given) Other Clinical Conditions: IUD Z01.419 Bread Stacker exam wo/abn findings Source of Specimen ThinPrep Pap Test (Cervical) Thin Prep Pap (BANKING OFFICER) Fee Code(s): G0145 The Pap test is a screening test with an inherent, but low, probability of error. The Pap test is primarily effective for the diagnosis and prevention of squamous cell carcinoma. Regular screening is critical for prevention. ThinPrep liquid-based slides, which meet the Supervisor Die Casting criteria for automated screening, have been screened by the ThinPrep Imaging System (as of 05/11/07) along with an additional manual rescreening by a registered nurse nursery and, if indicated, by a pathologist. Ally Yarbrough COOPERATIVE EDUCATION DIRECTOR-SOFTWARE TEST MANAGER PATHOLOGY/CYTOLOGY ORDER TARA Final Result COPATH from Last 3 Months or Most Recently Relevant to Health Maintenance Insurance [place] [employer] Advance Directives * Full Code (Latest Code Status on File) Date Activated Date Inactivated Comments 07/25/2024 2:16 AM 07/28/2024 7:29 PM * Full Code Date Activated Date Inactivated Comments 07/19/2024 1:45 AM 07/19/2024 3:54 AM * Full Code Date Activated Date Inactivated Comments 05/14/2024 11:24 AM 05/14/2024 2:53 PM * Full Code Date Activated Date Inactivated Comments 02/10/2020 8:51 AM 02/11/2020 9:31 PM * Full Code Date Activated Date Inactivated Comments 02/05/2020 9:26 PM 02/05/2020 11:38 PM Care Teams Tax Associate Relationship Specialty Start Date End Date Geronimo Reece DO [address] [place] [address] PCP - General Family Medicine 03/03/24
--- OUTSIDE RECORDS SUMMARY | 2025-03-28 15:20 | XMS_ITS | Encounter Summary ---
Author Organization [employer] [facility] tem Address [facility] [place]-[id number] [address] [place] [address] Care Team Providers Care License Registration Examiner Name Role Phone Geronimo Reece DO Primary Care Provider [phone] Encounter Details Date Type Department Care Team (Late st Contact Info) Description 06/16/[address] [facility] [address] [place] [place] [phone] Brigette Mondragon MA Social History Tobacco Use Types Packs/Day Years Used Date Smoking Tobacco: Former Cigarettes Q uit: 10/23/2016 Smokeless Tobacco: Never Alcohol Use Standard Drinks/Week Comments No 0 (1 standard drink = 0.6 oz pur e alcohol) Comments Yes Sex and Gender Information Value Date Recorded Sex Assigned at Not on file Legal Sex Female 11:45 AM EDT Gender Identity Not on file Sexual Orientation Not on file documented as of this encounter Plan of Treatment Not on file documented as of this encounter Visit Diagnoses Not on filedocumented in this encounter Additional Health Concerns Infection Onset Date Last Indicated Resolved Time COVID-19 Rule-Out Comment:OB covid screening pending - asymptomatic 02/02/2020 02/02/2020 02/08/2020 10:10 PM EDT COVID-19 Rule-Out 06/11/2021 06/11/2021 06/11/2021 6:04 PM EDT COVID-19 Rule-Out 10/16/2023 10/16/2023 10/16/2023 9:38 AM EST COVID-19 Rule-Out 10/27/2023 10/27/2023 10/27/2023 9:43 PM EST Influenza 10/27/2023 10/27/2023 11/03/2023 11:1 2 PM EDT COVID-19 Rule-Out 03/03/2024 03/03/2024 03/03/2024 11:14 AM EDT documented as of this encounter Care Teams License Registration Examiner Relationship Specialty Start Date End Date Geronimo Reece DO [address] [place] [address] PCP - General Family Medicine 03/03/24 documented as of this encounter
--- OUTSIDE RECORDS SUMMARY | 2025-03-28 15:20 | XMS_ITS | Encounter Summary ---
Author Organization [facility] Address [address] [place] [address] Care Team Providers Care Paperback Machine Operator Name Role Phone Unavailable Primary Care Provider Unavailabl e Encounter Details Date Type Department Care Team (Late st Contact Info) Description 03/28/2025 Bamboo flowsheet [facility] [address] [phone] Melissa Mayes PA [address] [place], [place] [address] Social History Tobacco Use Types Packs/Day Years Used Date Smoking Tobacco: Some Days Cigarettes Passive Smoke Exposure: Never Smokeless Tobacco: Never Comments No Sex and Gender Information Value Date Recorded Sex Assigned at Not on file Legal Sex Female 11:36 PM EDT Gender Identity Not on file Sexual Orientation Not on file documented as of this encounter Plan of Treatment Upcoming Encounters Date Type Department Care Team (Late st Contact Info) Description 11/30/2025 10:15 AM EDT Office Visit [facility] [address] [place] [phone] Cindy Faye MD [address] [place] [address] documented as of this encounter Visit Diagnoses Not on filedocumented in this encounter
--- OUTSIDE RECORDS SUMMARY | 2025-03-28 15:20 | XMS_ITS | Encounter Summary ---
Author Organization [employer] [facility] tem Address [facility] [id number] [address] [place] [address] Care Team Providers Care Director Of Federal Sales Name Role Phone Geronimo Reece DO Primary Care Provider [phone] Encounter Details Date Type Department Care Team (Late st Contact Info) Description 09/06/2020 Telephone [facility] Obstetrics/Gynecology [address] [facility] [address] Alberto Durbin MD [address] [place], [place] [id number] Social History Tobacco Use Types Packs/Day Years Used Date Smoking Tobacco: Former Cigarettes Q uit: 04/26/2019 Smokeless Tobacco: Never Alcohol Use Standard Drinks/Week Comments Not Currently 0 (1 standard drink = 0.6 oz pur e alcohol) Occasional [place] Depression Scale Answer Date Recorded [place] Depression Scale Total 7 03/22/2020 The thought [...] on file Sexual Orientation Not on file COVID-19 Exposure Response Date Recorded In the last month, have you been in contact with someone who was confirmed or suspected to have Coronavirus / COVID-19? No / Unsure 09/06/2020 9:55 AM EST documented as of this encounter Plan of [...] documented as of this encounter Care Teams Director Of Federal Sales Relationship Specialty Start Date End Date Geronimo Reece DO [address] [place] [address] PCP - General Family Medicine 03/03/24 documented as of this encounter
--- OUTSIDE RECORDS SUMMARY | 2025-03-28 15:20 | XMS_ITS | Encounter Summary ---
Author Organization [employer] [facility] tem Address [facility] [id number] [address] [place] [address] Care Team Providers Care Bunch Breaker Machine Operator Name Role Phone Geronimo Reece DO Primary Care Provider [phone] Encounter Details Date Type Department Care Team (Late st Contact Info) Description 12/08/[address] [address] [place] [place] [phone] Brigette Mondragon MA Social History Tobacco Use Types Packs/Day Years Used Date Smoking Tobacco: Former Cigarettes Q uit: 04/26/2019 Smokeless Tobacco: Never Alcohol Use Standard Drinks/Week Comments Yes 0 (1 standard drink = 0.6 oz pur e alcohol) Occasional Childcare Answer Date Recorded Childcare Unknown 02/03/2019 Employment Answer Date Recorded Employment Unknown 02/03/2019 Comments Yes Sex and Gender Information Value Date Recorded Sex Assigned at Not on file Legal Sex Female 11:45 AM EDT Gender Identity Not on file Sexual Orientation Not on file COVID-19 Exposure Response Date Recorded In the last month, have you been in contact with someone who was confirmed or suspected to have Coronavirus / COVID-19? No / Unsure 12/09/2019 1:51 PM EDT documented as of this encounter Plan of Treatment Not on file documented as of this encounter Visit Diagnoses Not on filedocumented in this encounter Additional Health Concerns Infection Onset Date Last Indicated Resolved Time COVID-19 Rule-Out Comment:OB covid screening pending - asymptomatic 02/02/2020 02/02/2020 02/08/2020 10:10 PM EDT COVID-19 Rule-Out 06/11/2021 06/11/202106/1106/11/2021 6:04 PM EDT COVID-19 Rule-Out 10/16/2023 10/16/2023 10/16/2023 9:38 AM EST COVID-19 Rule-Out 10/27/2023 10/27/2023 10/27/2023 9:43 PM EST Influenza 10/27/2023 10/27/2023 11/03/2023 11:1 2 PM EDT COVID-19 Rule-Out 03/03/2024 03/03/2024 03/03/2024 11:14 AM EDT documented as of this encounter Care Teams Bunch Breaker Machine Operator Relationship Specialty Start Date End Date Geronimo Reece DO [address] [place] [address] PCP - General Family Medicine 03/03/24 documented as of this encounter
--- OUTSIDE RECORDS SUMMARY | 2025-03-28 15:20 | XMS_ITS | Encounter Summary ---
Author Organization [employer] [facility] tem Address [facility] [place][id number] [address] [place] [address] Care Team Providers Care Financial Service Rep Name Role Phone Geronimo Reece DO Primary Care Provider [phone] Encounter Details Date Type Department Care Team (Late st Contact Info) Description 08/22/2020 Telephone [facility] [address] [facility] [place] [place] [phone] Brigette Mondragon MA Social History Tobacco Use Types Packs/Day Years Used Date Smoking Tobacco: Former Cigarettes Q uit: 04/26/2019 Smokeless Tobacco: Never Alcohol Use Standard Drinks/Week Comments Not Currently 0 (1 standard drink = 0.6 oz pur e alcohol) Occasional [place] Depression Scale Answer Date Recorded [place] Depression Scale Total 7 03/22/2020 The thought [...] Telephone Encounter - Brigette Mondragon MA - 08/22/2020 11:53 AM EST TUBAL OCCLUSION: 09/20/2020 @ 12 NOON PAT: 09/06/2020 @ 9:45AM COVID TEST: 09/17/2020 @ 9:00AM Left message to call office back Brigette Mondragon MA 08/22/20 1155 Tried calling patient to give dates and times . Left VM to call office back documented in this encounter Plan of Treatment [...] documented as of this encounter Care Teams Financial Service Rep Relationship Specialty Start Date End Date Geronimo Reece DO [address] [place] [address] PCP - General Family Medicine 03/03/24 documented as of this encounter
--- OUTSIDE RECORDS SUMMARY | 2025-03-28 15:20 | XMS_ITS | Encounter Summary ---
Author Organization [facility] Address [address] [address] Care Team Providers Care Bookkeeping Manager Name Role Phone Unavailable Primary Care Provider Unavailabl e Encounter Details Date Type Department Care Team (Late st Contact Info) Description 09/09/2024 Abstract [facility] [address] [place] [phone] Esteban Whaley DO [address] Bebe Mckinley, [id number] Social History Tobacco Use Types Packs/Day Years Used Date Smoking Tobacco: Some Days Cigarettes Smokeless Tobacco: Never Comments Unknown Sex and Gender Information Value Date Recorded Sex Assigned at Not on file Legal Sex Female 11:36 PM EDT Gender Identity Not on file Sexual Orientation Not on file documented as of this encounter Plan of Treatment Upcoming Encounters Date Type Department Care Team (Late st Contact Info) Description 11/30/2025 10:15 AM EDT Office Visit [facility] [address] [place] [phone] Cindy Faye MD [address] [place] [address] documented as of this encounter Visit Diagnoses Not on filedocumented in this encounter
--- OUTSIDE RECORDS SUMMARY | 2025-03-28 15:20 | XMS_ITS | Encounter Summary ---
Author Organization [employer] tem Address [facility] [place]-[id number] [address] [place] [address] Care Team Providers Care Power Marketer Name Role Phone ChevyGeronimo DO Primary Care Provider [phone] Encounter Details Date Type Department Care Team (Late st Contact Info) Description 07/21/2024 Telephone [facility] Pediatric Cardiology [facility] [address] [place] [phone] Eli Marley Social History Tobacco Use Types Packs/Day Years Used Date Smoking Tobacco: Former Cigarettes Smokeless Tobacco: Never Comments:States quit tobacco products end of 2022 Alcohol Use Standard Drinks/Week Comments Not Currently 0 (1 standard drink = 0.6 oz pur e alcohol) Occasional C Utilities Answer Date Recorded In the past [...] often do you attend chur ch or tenriism services? Never 04/22/2024 Do you belong to any clubs o r organizations such as judaism groups, unions, fraternal or athletic groups, or [...] things needed for daily living? No 07/18/2024 [place] Depression Scale Answer Date Recorded [place] Depression Scale Total 7 03/22/2020 The thought [...] Recorded Do you need help finding a [facility] career center and/or a training program? No 04/22/2024 Hunger Screening Answer Date Recorded Within the past 12 months we worried whether our food would run out before we got money to buy more. Never True 07/22/2024 Within the past 12 months th e food we bought just didn't last and we didn't have money to get more. Never True 07/22/2024 Purpose - Life Answer Date Recorded I have a purpose and direction in my life. Stron gly Agree 04/22/2024 Comments Yes Sex and Gender Information Value Date Recorded Sex Assigned at Not on file Legal Sex Female 11:45 AM EDT Gender Identity Not on file Sexual Orientation Not on file documented as of this encounter Miscellaneous Notes * Telephone Encounter - Eli Marley - 07/21/2024 8:13 AM EST Suni from [facility] called. This patient is currently set to have a C section next week at [facility] Dr. Church was hoping you could take a look at the imaging and let them know if this is the best course of action and either give Suni or Melissa at [facility] a call back regarding the results. * Telephone Encounter - Jolene Aleman MD - 07/21/2024 8:13 AM EST My understanding is that she will be delivering here . If that is the case then we will do a echocardiogram after 24 hours of life. documented in this encounter Plan of Treatment Not on file documented as of this encounter Visit Diagnoses Not on filedocumented in this encounter Additional Health Concerns Assessment Noted Time PHQ-9 Depression Total Score: 0 04/22/20 5:07 PM EDT A Body Mass Index follow-up plan has been documented for the patient 06/05/2023 2:55 PM EDT documented as of this encounter Care Teams Power Marketer Relationship Specialty Start Date End Date Geronimo Reece DO [address] [place] [address] PCP - General Family Medicine 03/03/24 documented as of this encounter
--- OUTSIDE RECORDS SUMMARY | 2025-03-28 15:20 | XMS_ITS | Encounter Summary ---
Author Organization [employer] [facility] tem Address [facility]-[id number] [address] [place] [address] Care Team Providers Care Senior Technologist Name Role Phone Geronimo Reece DO Primary Care Provider [phone] Encounter Details Date Type Department Care Team (Late st Contact Info) Description 11/08[facility]2019 [facility] [address] [place] [phone] Brigette Mondragon MA Social History Tobacco Use [...] documented as of this encounter Care Teams Senior Technologist Relationship Specialty Start Date End Date Geronimo Reece DO [address] [place] [address] PCP - General Family Medicine 03/03/24 documented as of this encounter
--- OUTSIDE RECORDS SUMMARY | 2025-03-28 15:20 | XMS_ITS | Encounter Summary ---
Author Organization [facility] tem Address [facility] [id number] [address] [place] [address] Care Team Providers Care Liquor Department Manager Name Role Phone Geronimo Reece DO Primary Care Provider [phone] Encounter Details Date Type Department Care Team (Late st Contact Info) Description 06/06/2023 Orders Only [facility] [address] [place] [phone] Ana Robles, RECOVERY SPECIAL[facility] [address] [facility], [address] [address] Social History Tobacco Use Types Packs/Day Years Used Date Smoking Tobacco: Some Days Cigarettes Smokeless Tobacco: Never Alcohol Use Standard Drinks/Week Comments Yes 0 (1 standard drink = 0.6 oz pur e alcohol) Occasional PHQ-2 Answer Date Recorded Total Score 1 06/05/2023 [place] Depression Scale Answer Date Recorded [place] Depression Scale Total 7 03/22/2020 The thought of harming myself has occurred to me . Never 03/22/2020 Childcare Answer Date Recorded Childcare Unknown 02/03/2019 Employment Answer Date Recorded Employment Unknown 02/03/2019 Hunger Screening Answer Date Recorded Within the past 12 months we worried whether our food would run out before we got money to buy more. Never True 06/05/2023 Within the past 12 months th e food we bought just didn't last and we didn't have money to get more. Never True 06/05/2023 Purpose - Life Answer Date Recorded Purpose [...] 03/03/2024 11:14 AM EDT Assessment Noted Time PHQ-9 Depression Total Score: 1 06/05/20 23 2:10 PM EDT A Body Mass Index follow-up plan has been documented for the patient 06/05/2023 2:55 PM EDT documented as of this encounter Care Teams Liquor Department Manager Relationship Specialty Start Date End Date Geronimo Reece DO [address] [place] [address] PCP - General Family Medicine 03/03/24 documented as of this encounter
--- OUTSIDE RECORDS SUMMARY | 2025-03-28 15:20 | XMS_ITS | Encounter Summary ---
Author Organization [employer] tem Address [facility] [id number] [address] [place] [address] Care Team Providers Care Helmet Hat Sweatband Puncher Name Role Phone Geronimo Reece DO Primary Care Provider [phone] Reason for Visit * Reason Onset Date Comments GLUCOSE TEST 05/07/2017 LUI CALLED T O LET YOU KNOW THAT SHE WENT TO HOSPITAL FOR TEST BUT SHE HAD NOT BEEN TOLD TO FAST SO SHE WILL HAVE TO GO ANOTHER DAY. Encounter Details Date Type Department Care Team (Late st Contact Info) Description 05/07/2017 Telephone [facility] [address] [place] [phone] Ana Robles, AGRICULTURE PROFESSOR-CN [address] [facility], [address] [address] GLUCOSE TEST (LUI CALLED TO LET YOU KNOW THAT SHE WENT TO HOSPITAL FOR TEST BUT SHE HAD NOT BEEN TOLD TO FAST SO SHE WILL HAVE TO GO ANOTHER DAY.) Social History Tobacco Use Types Packs/Day Years [...] documented as of this encounter Care Teams Helmet Hat Sweatband Puncher Relationship Specialty Start Date End Date Geronimo Reece DO [address] [place] [address] PCP - General Family Medicine 03/03/24 documented as of this encounter
--- OUTSIDE RECORDS SUMMARY | 2025-03-28 15:20 | XMS_ITS | Encounter Summary ---
Author Organization [facility] Address [address] [place] [address] Care Team Providers Care Wharf Helper Name Role Phone Unavailable Primary Care Provider Unavailabl e Encounter Details Date Type Department Care Team (Late st Contact Info) Description 03/14/2025 Telephone [facility] [address] [place] [address] Jina Moore MA [address] [place] [address] Social History Tobacco Use Types Packs/Day Years Used Date Smoking Tobacco: Some Days Cigarettes Passive Smoke Exposure: Never Smokeless Tobacco: Never Comments Unknown Sex and Gender Information Value Date Recorded Sex Assigned at Not on file Legal Sex Female 11:36 PM EDT Gender Identity Not on file Sexual Orientation Not on file documented as of this encounter Miscellaneous Notes * Telephone Encounter - Jina Moore MA - 03/14/2025 11:46 AM EDT Pt called she is having uterine pain after having intercourse w/ and then bleeding. Pt does have an IUD. Pt is still having discomfort and feels something is not right. I advised pt I will send an pelvic US order to [facility] for pt to schedule. Advised pt once she has the US done she is to call our office to set up a f/up visit to review results. PVU. US was faxed to [facility] documented in this encounter Plan of Treatment Upcoming Encounters Date Type Department Care Team (Late st Contact Info) Description 11/30/2025 10:15 AM EDT Office Visit [facility] [address] [place] [phone] Cindy Faye MD [address] [place] [address] Scheduled Orders Name Type Priority Associated Diagnoses Orde r Schedule US Pelvis w/ TV Imaging Routine Encounter for intrauterine device placement Expected: 03/14/2025, Expires: 09/14/2025 documented as of this encounter Visit Diagnoses Diagnosis Encounter for intrauterine device placement Insertion of intrauterine contraceptive device documented in this encounter
--- OUTSIDE RECORDS SUMMARY | 2025-03-28 15:20 | XMS_ITS | Encounter Summary ---
Author Organization [employer] tem Address [facility] [id number] [address] [place] [address] Care Team Providers Care Supervisor Partial Denture Department Name Role Phone Geronimo Reece DO Primary Care Provider [phone] Encounter Details Date Type Department Care Team (Late st Contact Info) Description 05/26/2024 Telephone [facility]ne[facility] [address] [place] [phone] Rola Moreira CMA Social History Tobacco Use Types Packs/Day Years Used Date Smoking Tobacco: Former Cigarettes Smokeless Tobacco: Never Alcohol Use Standard Drinks/Week Comments Not Currently 0 (1 standard drink = 0.6 oz pur e alcohol) Occasional C Utilities Answer Date Recorded In the past 12 months has e electric, gas, oil, or water company threatened to shut off services in your home? No 04/22/2024 Social Connection and Isolation Panel [NHANES] A nswer Date Recorded In a typical week, how many times do you talk on the phone with family, friends, or neighbors? Three times a week 04/22/2024 How often do you get togethe r with friends or relatives? Three times a week 04/22/2024 How often do you attend chur ch or sikhism services? Never 04/22/2024 Do you belong to any clubs o r organizations such as religious groups, unions, fraternal or athletic groups, or [...] care, and heating? Not hard at all 04/22/2024 PHQ-2 Answer Date Recorded Total Score 0 04/22/2024 Exercise Vital Sign Answer Date Recorde d [...] medical appointments or from getting medications? No 03/26 In the past 12 months, has l ack of transportation kept you from meetings, work, or from getting things needed for daily living? No 04/22/2024 [place] Depression Scale Answer Date Recorded [place] Depression Scale Total 7 03/22/2020 The thought of harming myself has occurred to me . Never 03/22/2020 Housing Instability Answer Date Recorde d Are you worried or concerned that in the next two months you may not have stable housing that you own, rent or stay in as a part of a household? No 04/22/2024 Childcare Answer Date Recorded Do problems getting child ca re make it difficult for you to work or study? No 04/22/2024 Employment Answer Date Recorded Do you need help finding a [facility] career center and/or a training program? No 04/22/2024 Hunger Screening Answer Date Recorded Within the past 12 months we worried whether our food would run out before we got money to buy more. Never True 05/19/2024 Within the past 12 months th e food we bought just didn't last and we didn't have money to get more. Never True 05/19/2024 Purpose - Life Answer Date Recorded I [...] Telephone Encounter - Rola Moreira CMA - 05/26/2024 4:25 PM EDT Patient called office stating she was treated last week by her PCP for Strep and was given an Rx for Keflex. Patient reports she is still having symptoms, and feels like it is getting worse. Patient would like to know if you have any suggestions. * Telephone Encounter - RADHA Cheugn - 05/26/2024 4:25 PM EDT She should be seen by PCP or urgent care if symptoms have not resolved. For symptomatic care she can gargle with warm salt water and use throat lozenges as well as take extra strength tylenol. * Telephone Encounter - Rola Moreira CMA - 05/26/2024 4:25 PM EDT Called patient and informed her of this information documented in this encounter Plan of Treatment Not on file documented as of this encounter Visit Diagnoses Not on filedocumented in this encounter Additional Health Concerns Assessment Noted Time PHQ-9 Depression Total Score: 0 04/22/20 5:07 PM EDT A Body Mass Index follow-up plan has been documented for the patient 06/05/2023 2:55 PM EDT documented as of this encounter Care Teams Supervisor Partial Denture Department Relationship Specialty Start Date End Date Geronimo Reece DO [address] [place] [address] PCP - General Family Medicine 03/03/24 documented as of this encounter
--- OUTSIDE RECORDS SUMMARY | 2025-03-28 15:20 | XMS_ITS | Encounter Summary ---
Author Organization [facility] Address [address] [place] [address] Care Team Providers Care Manager Risk Management Name Role Phone Unavailable Primary Care Provider Unavailabl e Encounter Details Date Type Department Care Team (Late st Contact Info) Description 03/15/2025 Clinisync Result Encounter [facility] External Department Unsolicited Melissa Tinoco PA [address] [place] [address] [place] [address] Social History Tobacco Use Types Packs/Day Years [...] Office Visit [facility] [address] [facility] [address] [place] [phone] Cindy Faye MD [address] [facility] [address] [place] [address] documented as of this encounter Procedures Procedure Name Priority Date/Time Associated Diagnosis Comments US PELVIS W/ TRANSVAGINAL 03/15/2025 9:09 AM EDT documented in this encounter Results * US PELVIS W/ TRANSVAGINAL (03/15/2025 9:09 AM EDT) Anatomical Region Laterality Modality Other 03/15/2025 9:09 AM EDT Narrative 03/15/2025 9:11 AM EDT [address] [address] Ultrasound Report Signed Patient: LUI MCDANIEL MR#: [id number] : 1990 Acct:[id number] Age/Sex: 34 / F ADM Date: 03/14/25 Loc: US Attending Dr: Melissa Tinoco Ordering Physician: Melissa Tinoco Date of Service: 03/14/25 Procedure(s): US pelvis w/ transvaginal Accession Number(s): [id number] cc: Melissa Tinoco; Physician,Non-Staff M.Ana [address] [address] Patient Name: LUI MCDANIEL MRN: [id number] date: 1990 Sex: F Assigned Patient Location: US Current Patient Location: Accession/Order Number: [id number] Exam Date: 03/15/2025 09:01 Report Date: 03/15/2025 09:09 At the request of: MELISSA TINOCO Procedure: US pelvis w/ transvaginal Pelvic ultrasound. Reason for exam: Intrauterine device placement Comparison: none Technique: Transabdominal imaging of the uterus and ovaries was performed. Transvaginal imaging of the uterus and ovaries was also obtained. Additional spectral Doppler analysis of the ovaries was also obtained. Findings: Uterus measures 10.3 x 5.0 x 5.7 cm. No measurable fibroid is seen. Endometrium measures 8.9 mm without focal abnormality. IUD is seen within the endometrial canal in satisfactory position. Right ovary measures 3.0 x 2.1 x 2.7 cm. Left ovary measures 3.1 x 1.5 x 2.4 cm. Normal arterial and venous Doppler waveforms of the ovaries. No adnexal mass or cyst. No free fluid. US/US pelvis w/ transvaginal Impression: Unremarkable pelvic ultrasound. IUD in satisfactory position. Impression dictated by: Rigo Gray Jr., D.O. 03/15/2025 9:09 AM Dictation Location: [place] [address] Electronically authenticated by: [id number] Y Date: 03/15/2025 09:09 Dictated By: Rigo Gray M.D. Signed By: 03/15/25910 DD/ 8 TD/TT: Manager Cafe: Procedure Note Radiology, Radiologist, - 03/15/2025 [place] [address] Ultrasound Report Signed Patient: LUI MCDANIEL CMR#: [id number] : 1990Acct:[id number] Age/Sex: 34 / FADM Date: 03/14/25 Loc: US Attending Dr: Melissa Tinoco Ordering Physician: Melissa Tinoco Date of Service: 03/14/25 Procedure(s): US pelvis w/ transvaginal Accession Number(s): [id number] cc: Melissa Tinoco; Physician,Non-Staff Chery The [place] [id number] Patient Name: LUI MCDANIEL MRN: [id number] date: 1990 Sex: F Assigned Patient Location: US Current Patient Location: Accession/Order Number: [id number] Exam Date: 03/15/2025 09:01 Report Date: 03/15/2025 09:09 At the request of: MELISSA TINOCO Procedure: US pelvis w/ transvaginal Pelvic ultrasound. Reason for exam: Intrauterine device placement Comparison: none Technique: Transabdominal imaging of the uterus and ovaries was performed. Transvaginal imaging of the uterus and ovaries was also obtained.Additional spectral Doppler analysis of the ovaries was also obtained. Findings: Uterus measures 10.3 x 5.0 x 5.7 cm. No measurable fibroid isseen. Endometrium measures 8.9 mm without focal abnormality. IUD is seenwithin the endometrial canal in satisfactory position. Right ovary measures 3.0 x 2.1 x 2.7 cm. Left ovary measures 3.1 x 1.5 x2.4 cm. Normal arterial and venous Doppler waveforms of the ovaries. Noadnexal mass or cyst. No free fluid. US/US pelvis w/ transvaginal Impression: Unremarkable pelvic ultrasound. IUD in satisfactory position. Impression dictated by: Rigo Gray Jr., D.O. 03/15/2025 9:09 AM Dictation Location: [place] [address] Electronically authenticated by: [id number] Y Date: 9:09 Dictated By: Rigo Gray M.D. Signed By:03/15/2511 DD/ 8 TD/TT: Manager Cafe: Melissa [facility] Final Result documented in this encounter Visit Diagnoses Not on filedocumented in this encounter
--- OUTSIDE RECORDS SUMMARY | 2025-03-28 15:20 | XMS_ITS | Encounter Summary ---
Author Organization [employer] [facility] tem Address [facility] [id number] [address] [place] [address] Care Team Providers Care Joiners Supervisor Name Role Phone Geronimo Reece DO Primary Care Provider [phone] Encounter Details Date Type Department Care Team (Late st Contact Info) Description 08/31/2020 [facility] [address] [place] [place] [phone] Brigette Mondragon MA Social History Tobacco Use Types Packs/Day Years Used Date Smoking Tobacco: Former Cigarettes Q uit: 04/26/2019 Smokeless Tobacco: Never Alcohol Use Standard Drinks/Week Comments Not Currently 0 (1 standard drink = 0.6 oz pur e alcohol) Occasional [place] Depression Scale Answer Date Recorded [place] Depression Scale Total 7 03/22/2020 The thought [...] Telephone Encounter - Brigette Mondragon MA - 08/31/2020 2:35 PM EST Patient's surgery time changed from 12 noon to 7:30am Patient aware of time change Brigette Mondragon MA 08/31/20 1436 documented in this encounter Plan of Treatment [...] documented as of this encounter Care Teams Joiners Supervisor Relationship Specialty Start Date End Date Geronimo Reece DO [address] [place] [address] PCP - General Family Medicine 03/03/24 documented as of this encounter
--- OUTSIDE RECORDS SUMMARY | 2025-03-28 15:20 | XMS_ITS | Encounter Summary ---
Author Organization [facility] tem Address [facility] [id number] [address] [place] [address] Care Team Providers Care Manager Training Name Role Phone Geronimo Reece DO Primary Care Provider [phone] Encounter Details Date Type Department Care Team (Late st Contact Info) Description 08/28/[address] [facility] [address] [place] [phone] Brigette Mondragon MA Social History Tobacco Use Types Packs/Day Years Used Date Smoking Tobacco: Former Cigarettes Q uit: 04/26/2019 Smokeless Tobacco: Never Alcohol Use Standard Drinks/Week Comments Not Currently 0 (1 standard drink = 0.6 oz pur e alcohol) Occasional [place] Depression Scale Answer Date Recorded [place] Depression Scale Total 7 03/22/2020 The thought [...] Encounter - Brigette Mondragon MA - 08/28/2020 2:06 PM EST Can you send over beta for patient . She stated she had some breast tenderness and stated there is a chance but patient is on BC Brigette Mondragon MA 08/28/20 1407 documented in this encounter Plan of Treatment [...] documented as of this encounter Care Teams Manager Training Relationship Specialty Start Date End Date Geronimo Reece DO [address] [place] [address] PCP - General Family Medicine 03/03/24 documented as of this encounter
--- OUTSIDE RECORDS SUMMARY | 2025-03-28 15:20 | XMS_ITS | Encounter Summary ---
Author Organization [facility] Address [address] [place] [address] Care Team Providers Care Fruit Coordinator Name Role Phone Unavailable Primary Care Provider Unavailabl e Encounter Details Date Type Department Care Team (Late st Contact Info) Description 09/09/2024 Abstract [facility] [address] [place] [phone] Esteban Whaley DO [address] [facility] [address] Bebe Mckinley, [facility] Social History Tobacco Use Types Packs/Day Years [...] [address] [place] [phone] Cindy Faye MD [address] [place] [address] documented as of this encounter Visit Diagnoses Not on filedocumented in this encounter
--- OUTSIDE RECORDS SUMMARY | 2025-03-28 15:21 | XMS_ITS | Clinical Summary ---
Author Organization [facility] Address [address] [place] [address] Care Team Providers Care Head Shipper Name Role Phone Unavailable Primary Care Provider Unavailabl e Allergies Active Allergy Reactions Criticality Noted Date Comments Bee Pollen 12/26/2011 Other Reaction(s): Unknown Medications spironolactone (Aldactone) 50 MG tabletIndicatio ns:Acne vulgaris Take 3 tablets, by mouth, once daily, 30 days 90 tablet 11 11/30/2024 Active sulfacetamide suspension (Klaron) 10 % lotion topicalIndicati ons:Acne vulgaris Apply thin layer to face once daily, 30 day supply. 118 mL 11 11/30/2024 Active clindamycin-seth zoyl peroxide (BenzaClin) gelIndications: Acne vulgaris Apply to the face, once daily in the morning, 30 day supply 25 g 11 11/30/2024 Active amoxicillin-cla vulanate (Augmentin) 875-125 MG tablet Take 875 mg by mouth in the morning and 875 mg before bedtime. 03/21/2025 Active fluconazole (Diflucan) 150 MG tablet Take 100 mg by mouth 1 (one) time 03/27/2025 Active Hospital, Clinic, or Other Facility Administered Medication Ordered Dose Route Frequency Start Date End Date Status Levonorgestrel intrauterine device 52 mgIndications:Encounter for insertion of Mirena IUD 52 mg IU Continuous 10/19/2024 10/18/2029 Active Active Problems No known active problems Encounters Date Type Department Care Team Description 03/28/2025 11:00 AM EDT Office Visit [facility] [address] [place] [address] [place] [address] Melissa Tinoco PA Well woman exam with routine gynecological exam; Encounter for routine checking of intrauterine contraceptive device (IUD) 03/28/2025 Bamboo flowsheet [facility] [address] [facility] [place] [address] Melissa Tinoco PA 03/15/2025 Clinisync Result Encounter [facility] External Department Unsolicited Melissa Tinoco PA 03/14/2025 Telephone [facility] [address] [facility] [place] [address] Jina Moore MA from Last 3 Months Social History Tobacco Use Types Packs/Day Years Used Date Smoking Tobacco: Some Days Cigarettes Passive Smoke Exposure: Never Smokeless Tobacco: Never Tobacco Cessation:Ready to Q uit: Not Asked; Counseling Given: Not Answered Comments No Sex and Gender Information Value [...] Mass Index 34.28 03/28/2025 11:11 AM EDT Plan of Treatment Upcoming Encounters Date Type Department Care Team (Late st Contact Info) Description 11/30/2025 10:15 AM EDT Office Visit [facility] [address] [place] [phone] Cindy Faye MD [address] [place] [address] Procedures Procedure Name Priority Date/Time Associated Diagnosis Comments US PELVIS W/ TRANSVAGINAL 03/15/2025 9:09 AM EDT from Last 3 Months Results * US PELVIS W/ TRANSVAGINAL (03/15/2025 9:09 AM EDT) Anatomical Region Laterality Modality Other 03/15/2025 9:09 AM EDT Narrative 03/15/2025 9:11 AM EDT [address] [address] Ultrasound Report Signed Patient: KELLY MCDANIEL MR#: [id number] : 1990 Acct:[id number] Age/Sex: 34 / F ADM Date: 03/14/25 Loc: US Attending Dr: Melissa Tinoco Ordering Physician: Melissa Tinoco Date of Service: 03/14/25 Procedure(s): US pelvis w/ transvaginal Accession Number(s): [id number] cc: Melissa Tinoco; Physician,Non-Staff M.Ana [address] [id number] Patient Name: KELLY MCDANIEL MRN: [facility]:[id number] date: 1990 Sex: F Assigned Patient Location: Current Patient Location: Accession/Order Number: [id number] Exam Date: 03/15/2025 09:01 Report Date: 03/15/2025 [...] Jr., D.O. 03/15/2025 9:09 AM Dictation Location: [place] [address] Electronically authenticated by: [id number] Y Date: 03/15/2025 09:09 Dictated By: Rigo Gray M.D. Signed By: 03/15/25910 DD/ 8 TD/TT: Photocomposing Keyboard Operator: Procedure Note Radiology, Radiologist, MD - 03/15/2025 [place] [address] Ultrasound Report Signed Patient: KELLY MCDANIEL CMR#: [id number] : 1990Acct:[id number] Age/Sex: 34 / FADM Date: 03/14/25 Loc: US Attending Dr: Melissa Tinoco Ordering Physician: Melissa Tinoco Date of Service: 03/14/25 Procedure(s): US pelvis w/ transvaginal Accession Number(s): [id number] cc: Melissa Tinoco; Physician,Non-Staff Chery The [place] [id number] Patient Name: KELLY MCDANIEL MRN: [id number] date: 1990 Sex: F Assigned Patient Location: Current Patient Location: Accession/Order Number: [id number] Exam Date: 03/15/2025 09:01 Report Date: 03/15/2025 [...] Jr., D.O. 03/15/2025 9:09 AM Dictation Location: [place] [address] Electronically authenticated by: [id number] Y Date: 9:09 Dictated By: Rigo Gray M.D. Signed By:03/15/25910 DD/ 8 TD/TT: Photocomposing Keyboard Operator: us Melissa [facility] Final Result from Last 3 Months Insurance [employer]
[2025-03-30 14:08] LABS: Age Gdln ACOG Testing Note (.); IGP, Aptima HPV, rfx 16/18,45 Note (.)
== END 2025-03-28 15:18 | disposition home or self-care (01) ==
LOC: LAB 15:17
PROVIDERS: Visit Provider Physician Assistant
DX: Z01.419 Encounter for gynecological examination (general) (routine) without abnormal findings (principal)
CPT/HCPCS: 87624; 88175